=== PATIENT | female | born 1945 ===

== ENCOUNTER 2016-10-03 07:10 | Day surgery (SDC) | payer MEDICARE ==
[2016-10-03] MEDS ORDERED: Lactated Ringer's 500 ML IV ONE (08:05)
[2016-10-03] MEDS ORDERED: Propofol 10 mg/ml Inj (20 ML) ONE ×2 (08:44→09:09)
[2016-10-03 09:44] VITALS: BP 144/65; PULSE 105; RESP 20; TEMP 97.5; O2SAT 100
== END 2016-10-03 09:59 | disposition home or self-care (01) ==
LOC: H.ENDO 07:10
PROVIDERS: ATTEND Internal Medicine Gastroenterology
DX: Z12.11 Encounter for screening for malignant neoplasm of colon (principal); K64.8 Other hemorrhoids; E03.9 Hypothyroidism, unspecified; J45.909 Unspecified asthma, uncomplicated; E11.9 Type 2 diabetes mellitus without complications; M19.90 Unspecified osteoarthritis, unspecified site
CPT/HCPCS: 45378; 88305; 88313; J2001; J2704; J7120

== ENCOUNTER 2017-07-01 08:46 | Inpatient (IN) | payer MEDICARE ==
[2017-07-01 08:54] VITALS: BMI 26.9
--- NOTE | 2017-07-01 10:36 | ED PDOC ---
HPI: General Adult Time Seen by Provider: 07/01/17 09:44 Chief Complaint (Nursing): Flu-like Symptoms Chief Complaint (Provider): "im short of breath" History Per: Patient History/Exam Limitations: no limitations Onset/Duration Of Symptoms: Days Have you had recent travel within the past 21 days to any of the following countries: [place], [place], [place] or [place]?: No Current Symptoms Are (Timing): Still Present Severity: Mild Pain Scale Rating Of: 4 Additional Complaint(s): 72 y/o female, with PMHx of RA, NIDDM2, and mild intermittent asthma presents complaining of approx 5-6 days of chills, congestion, cough, myalgias, chest pain, and SOB. Pt reports she lives in a senior home and much of the population residing within the complex has been getting upper respiratory infections. She reports she has chills and intermittent nasal congestion, mildy productive cough with greyish phlegm, sharp chest pain midsternally which comes and goes with the cough, SOB causing her to use her inhaler more often than usual ( approx 2-3 times per day), loss of appetite, and muscle aches. Tolerating PO fluid intake w/o difficulty. She has not been vaccinated for the flu this year as she states she has an allergy preventing her to get it. Denies fever/chills, headaches, changes in vision, hemoptysis, weight loss, palpitations, N/V/D/C, urinary symptoms, numbness/tingling. PMD: [facility] Past Medical History Vital Signs: Last Vital Signs Temp 97.9 F 07/01/17 08:54 Pulse 89 07/01/17 08:54 Resp 20 07/01/17 08:54 BP 144/74 07/01/17 08:54 Pulse Ox 95 07/01/17 10:54 - Medical History PMH: Arthritis, Asthma, Diabetes (Type II), Hypothyroidism - Surgical History Surgical History: Cholecystectomy, - Family History Family History: States: Unknown Family Hx - Allergies Allergies/Adverse Reactions: Allergies Allergy/AdvReac Type Severity Reaction Status Date / Time No Known Allergies Allergy Verified 10/03/16 08:07 Review of Systems ROS Statement: Except As Marked, All Systems Reviewed And Found Negative Physical Exam - Reviewed Nursing Documentation Reviewed: Yes Vital Signs Reviewed: Yes - Physical Exam Appears: Positive for: Non-toxic, No Acute Distress Head Exam: Positive for: ATRAUMATIC Skin: Positive for: Warm, Dry Eye Exam: Positive for: Normal appearance, EOMI, PERRL. Negative for: Conjunctival injection ENT: Positive for: Normal ENT Inspection. Negative for: Sinus Pain/Drainage, Nasal Congestion, Pharyngeal Erythema, Tonsillar Exudate, Tonsillar Swelling Neck: Positive for: Painless ROM, Supple Cardiovascular/Chest: Positive for: Regular Rate, Rhythm. Negative for: JVD, Murmur, Bradycardia, Tachycardia Respiratory: Positive for: Decreased Breath Sounds (bibasilar ), Rhonchi (left sided rhonci ), Wheezing (expiratory wheezing throughout both lung alexander ). Negative for: Accessory Muscle Use, Crackles, Rales, Respiratory Distress, Plerual Rub Pulses-Radial (L): 2+ Pulses-Radial (R): 2+ Gastrointestinal/Abdominal: Positive for: Normal Exam, Soft. Negative for: Tenderness Back: Negative for: L CVA Tenderness, R CVA Tenderness Lymphatic: Negative for: Adenopathy Neurologic/Psych: Positive for: Alert, rhit II-XII, Oriented - Laboratory Results Result Diagrams: 07/01/17 11:08 07/01/17 11:52 - ECG O2 Sat by Pulse Oximetry: 95 - Progress ED Course And Treament: likley asthma exacerbation 2/2 to URI/flu rapid flu cbc cmp troponin coags CXR EKG Duo-nebs x3, Q20 minutes apart Solu-medrol 125mg Chest CTA re-evaluated, stable, pt reports mild improvement in SOB, denies CP but still feels weak. As per CT findings, discussed with inpatient team, pt to be admitted for further evaluation. Disposition - Clinical Impression Clinical Impression: Influenza-like symptoms, Abnormal chest CT - Patient ED Disposition Is Patient to be Admitted: Yes - Disposition Disposition Time: 14:56 Condition: STABLE Forms: H[employer]Me (Faroese) - Pt Status Changed To: Hospital Disposition Of: Inpatient - Admit Certification Admit to Inpatient:: After my assessment, the patient will require hospitalization for at least two midnights. This is because of the severity of symptoms shown, intensity of services needed, and/or the medical risk in this patient being treated as an outpatient.
[2017-07-01] MEDS ORDERED: methylPREDNISolone 125 MG in Sodium Chloride 0.9% 50 ML IVPB ONE (10:42)
[2017-07-01] MEDS ORDERED: Albuterol-Ipratrop 3 mg / 0.5 (3 ml) UD INH STA (10:42)
[2017-07-01] MEDS ORDERED: Albuterol-Ipratrop 3 mg / 0.5 (3 ml) UD INH ONE ×2 (11:05→11:25)
--- NOTE | 2017-07-01 11:05 | RAD ---
PROCEDURE: CHEST RADIOGRAPH, 1 VIEW HISTORY: Cough COMPARISON: 05/06/2015. FINDINGS: LUNGS: There is low lung volume on the right with shift of trachea and mediastinal diffuse opacification of the right hemithorax. The left lung is well inflated and clear. PLEURA: No pneumothorax or pleural fluid seen. CARDIOVASCULAR: Normal. OSSEOUS STRUCTURES: No significant abnormalities. VISUALIZED UPPER ABDOMEN: Normal. OTHER FINDINGS: None. IMPRESSION: Diffuse opacification of the right hemithorax with shift of trachea and mediastinal which could represent right lung collapse and superimposed infection cannot be excluded. Follow-up is advised.
[2017-07-01] MEDS ORDERED: Albuterol-Ipratrop 3 mg / 0.5 (3 ml) UD ONE (11:20)
[2017-07-01 11:21] LABS: BASO # 0.1 K/uL (0.0-0.2); BASO % 0.8 % (0.0-2.0); EOS # 0.4 K/uL (0.0-0.7); EOS % 4.4 % (0.0-4.0); HEMOGLOBIN 11.5 g/dL (12.0-16.0); LYMPH # 1.3 K/uL (1.0-4.3); LYMPH % 14.3 % (20.0-40.0); MEAN CELL VOLUME 86.2 fl (81.0-99.0); MEAN CORPUSCULAR HEMOGLOBIN 28.5 pg (27.0-31.0); MEAN CORPUSCULAR HGB CONC 33.1 g/dL (33.0-37.0); MEAN PLATELET VOLUME 8.1 fl (7.2-11.7); MONO # 1.6 K/uL (0.0-0.8); MONO % 17.8 % (0.0-10.0); NEUT # 5.7 K/uL (1.8-7.0); NEUT % 62.7 % (50.0-75.0); NRBC % 0.1 % (0.0-0.0); RBC 4.03 Mil/uL (3.80-5.20); RED CELL DISTRIBUTION WIDTH 14.7 % (11.5-14.5)
[2017-07-01 11:36] LABS: INR 1.2 (0.9-1.2); PARTIAL THROMBOPLASTIN TIME 31.9 Seconds (25.6-37.1); PROTHROMBIN TIME 12.9 Seconds (9.8-13.1)
[2017-07-01] MEDS ORDERED: Iodixanol 320 MG/ML 100 ML BOTTLE IV ONE (13:09)
[2017-07-01] MEDS ORDERED: Sodium Chloride 0.9% 50 ML IV ONE (13:09)
[2017-07-01 13:22] LABS: ALBUMIN 4.1 g/dL (3.5-5.0); ALT/SGPT 35 U/L (9-52); AST/SGOT 37 U/L (14-36); BLOOD UREA NITROGEN 13 mg/dl (7-17); CALCIUM 9.8 mg/dL (8.4-10.2); GFR AFRICAN-AMERICAN > 60; GFR NON-AFRICAN AMERICAN > 60
[2017-07-01 13:34] LABS: B-TYPE NATRIURETIC PEPTIDE 139 pg/ml (0-900)
--- NOTE | 2017-07-01 14:14 | CT ---
PROCEDURE: CT Chest with contrast (Pulmonary Angiogram) HISTORY: Chest pain, evaluate for pulmonary embolism COMPARISON: Plain radiographs performed the same day. CT chest from 10/01/2013 TECHNIQUE: Axial computed tomography images were obtained of the chest in the pulmonary arterial phase of enhancement. Coronal and sagittal reformatted images were created and reviewed. Intravenous contrast dose: 99 cc Visipaque 320 Radiation dose: Total exam DLP = 421.23 mGy-cm. This CT exam was performed using one or more of the following dose reduction techniques: Automated exposure control, adjustment of the mA and/or kV according to patient size, and/or use of iterative reconstruction technique. FINDINGS: PULMONARY ARTERIES: There are no filling defects in the pulmonary arteries to suggest acute pulmonary embolism. AORTA: No thoracic aortic aneurysm. LUNGS: Again seen is chronic collapse of the right upper and middle lobes with cystic bronchiectasis, volume loss and shift of trachea and mediastinal to the right. There is hyperinflation of the right lower lobe. The left lung is clear without consolidation or mass. There are stable noncalcified granulomas in the left lower lobe, the largest measures 5 mm. PLEURAL SPACES: No pleural effusions or pneumothorax. HEART: The heart is normal in size. No pericardial effusion. LYMPH NODES: No pathologic lymphadenopathy. BONES, CHEST WALL: Within normal limits for the patient's age. No fracture or destructive lesion OTHER FINDINGS: Both adrenal glands are normal. There are stable calcifications in the right hepatic lobe and capsular calcification in this plane. IMPRESSION: 1. No CTA evidence for acute pulmonary embolism. 2. Chronic complete collapse of the right upper lobe with cystic bronchiectasis and fibrotic changes with resultant shift of trachea and mediastinum to the right. No acute pulmonary disease. 3. Stable noncalcified granulomas in the left lower lobe, the largest measures 5 mm.
[2017-07-01] MEDS ORDERED: Albuterol-Ipratrop 3 mg / 0.5 (3 ml) UD INH SCH (14:30)
--- NOTE | 2017-07-01 16:54 | CP.PCM.HP ---
History of Present Illness - History of Present Illness History of Present Illness: 72 y/o F with a PMHx of Hypothyroidism, RA, asthma and DM2 presented to ER c/o chills, nasal congestion, productive cough with dark sputum, diffuse joint pain , chest pain and SOB for 6 days. Pt lives at [facility], reports ill contacts with neighbors who have URI. Pt has been using her Albuterol inhaler more than twice a day for the last few days. - Also, pt reports c/o weakness that began 1 year ago, has been progressively aggravating and most severe since 1 month ago. According to pt, she has noticed increased lost of appetite and minimal weight loss since a few months ago. Pt also reports episodes of chest pain that is described as sharp, sub-sternal, non -radiating, last for a few seconds, associated with profuse sweating and resolves spontaneously. Pt states sweating has also been present since 1 year ago but has become daily, even during night. -Pt reports for the last month, she has been using Albuterol 1x a week and 1 night per week. Pt was diagnosed with RA aprozimately 9 months ago, on MTX for 6 months and has alleviated her joint pain. Pt see her oral and maxillofacial surgery regularly and reports her RA is cotrolled with her current meds. -Pt also endorses having TB when she was 9.5 years old, was hospitalized at [facility] in [place] for 1.5 years taking ~6 different medications a day. Last time she saw her special programs director was 1 year ago who recommended breathing exercises. PMD: [facility] [employer] [facility] Consultant: Dr Mac. Boarder Steam: Dr Tao. PMHx: RA, Asthma, DM2 and hypothyroidism. Hx of active TB infection. Meds: Albuterol, MTX, Sulindac, Levothyroxine 125mcg, Folica acid, Glimepiride PSHx: Cholecystectomy. FHx: mother had a hysterectomy due to unspecified cancer, mother and father had DM2 and due to heart failure. SHx: Never smoked, no alcohol, no rec drugs. ER course: -CBC, CMP, coagulation profile, were ordered. Unremarkable results. -troponin x1-negative. -Influenza negative. -EKG was abnormal, final report pending. -CXR shoed diffuse opacification of R hemithorax with shift of trachea and mediastinum. See full report. -Chest Angio CT showed no PE evidence, chronic compete collapse of RUL with cystic bronchiectasis and fibrotic changes with resultant shift of trachea and mediastinum to the right. Stable noncalcified granuloma in the LLL, the largest measures 5 mm. -DuoNeb x3, Methylprednisolone and Levofloxacin administered. Present on Admission - Present on Admission Any Indicators Present on Admission: No Review of Systems - Constitutional Constitutional: Chills, Excessive Sweating, Fatigue, Lethargy. absent: Fever, Frequent Falls - EENT Eyes: absent: Blurred Vision, Change in Vision, Photophobia Ears: absent: Ear Pain, Tinnitus Nose/Mouth/Throat: Nasal Congestion - Cardiovascular Cardiovascular: Chest Pain, Dyspnea. absent: Dyspnea on Exertion, Lightheadedness - Respiratory Respiratory: Cough, Dyspnea. absent: Hemoptysis - Gastrointestinal Gastrointestinal: absent: Abdominal Pain, Change in Bowel Habits, Change in Stool Character - Musculoskeletal Musculoskeletal: Arthralgias Past Patient History - Past Medical History & Family History Past Medical History?: Yes - Past Social History Smoking Status: Never Smoked - PULMONARY Hx Asthma: Yes - ENDOCRINE/METABOLIC Hx Hypothyroidism: Yes - MUSCULOSKELETAL/RHEUMATOLOGICAL Hx Arthritis: Yes - PSYCHIATRIC Hx Substance Use: No - SURGICAL HISTORY Hx Cholecystectomy: Yes - ANESTHESIA Hx Anesthesia: Yes Hx Anesthesia Reactions: No Hx Malignant Hyperthermia: No Meds Allergies/Adverse Reactions: Allergies Allergy/AdvReac Type Severity Reaction Status Date / Time No Known Allergies Allergy Verified 10/03/16 08:07 Physical Exam - Constitutional Appears: Well, No Acute Distress - Head Exam Head Exam: ATRAUMATIC, NORMAL INSPECTION - Eye Exam Eye Exam: EOMI, Normal appearance, PERRL - ENT Exam ENT Exam: Mucous Membranes Moist - Neck Exam Neck exam: Positive for: Full Rom. Negative for: Lymphadenopathy, Meningismus - Respiratory Exam Respiratory Exam: Wheezes (Bilaterally on lower lobes), NORMAL BREATHING PATTERN - Cardiovascular Exam Cardiovascular Exam: REGULAR RHYTHM, +S1, +S2 - GI/Abdominal Exam GI & Abdominal Exam: Normal Bowel Sounds, Soft. absent: Tenderness Results - Vital Signs Recent Vital Signs: Last Vital Signs Temp 97.9 F 07/01/17 08:54 Pulse 89 07/01/17 08:54 Resp 20 07/01/17 08:54 BP 144/74 07/01/17 08:54 Pulse Ox 95 07/01/17 14:57 - Labs Result Diagrams: 07/01/17 11:08 07/01/17 11:52 Labs: Laboratory Results - last 24 hr 07/01/17 07/01/17 07/01/17 11:08 11:08 11:08 WBC 9.0 RBC 4.03 Hgb 11.5 L Hct 34.7 MCV 86.2 D MCH 28.5 MCHC 33.1 RDW 14.7 H Plt Count 409 H MPV 8.1 Neut % (Auto) 62.7 Lymph % (Auto) 14.3 L [place] % (Auto) 17.8 H Eos % (Auto) 4.4 H Baso % (Auto) 0.8 Neut # 5.7 Lymph # 1.3 [place] # 1.6 H Eos # 0.4 Baso # 0.1 PT 12.9 INR 1.2 APTT 31.9 Sodium 142 Potassium 4.6 Chloride 105 Carbon Dioxide 27 Anion Gap 15 BUN 13 Creatinine 0.7 Est GFR ( Amer) > 60 Est GFR (Non-Af Amer) > 60 Random Glucose 74 Calcium 9.8 Total Bilirubin 0.6 AST 37 H D ALT 35 Alkaline Phosphatase 159 H D Troponin I < 0.0120 NT-Pro-B Natriuret Pep 139 Total Protein 8.2 Albumin 4.1 Globulin 4.1 H Albumin/Globulin Ratio 1.0 Influenza Typ A,B (EIA) 07/01/17 07/01/17 11:08 11:52 WBC RBC Hgb Hct MCV MCH MCHC RDW Plt Count MPV Neut % (Auto) Lymph % (Auto) [place] % (Auto) Eos % (Auto) Baso % (Auto) Neut # Lymph # [place] # Eos # Baso # PT INR APTT Sodium Cancelled Potassium Cancelled Chloride Cancelled Carbon Dioxide Cancelled Anion Gap Cancelled BUN Cancelled Creatinine Cancelled Est GFR ( Amer) Cancelled Est GFR (Non-Af Amer) Cancelled Random Glucose Cancelled Calcium Cancelled Total Bilirubin Cancelled AST Cancelled ALT Cancelled Alkaline Phosphatase Cancelled Troponin I NT-Pro-B Natriuret Pep Total Protein Cancelled Albumin Cancelled Globulin Cancelled Albumin/Globulin Ratio Cancelled Influenza Typ A,B (EIA) Negative for flu a/b Assessment & Plan - Assessment and Plan (Free Text) Assessment: 72 y/o F with a PMHx of RA, Asthma, hypothyroidism, DM2 and past TB infection was admitted for evaluation of SOB, aggravating weakness and abnormal Chest CT angio. Plan: 1. SOB, flu-like symptoms, Weakness - -Chest Angio CT showed no PE evidence, chronic compete collapse of RUL with cystic bronchiectasis and fibrotic changes with resultant shift of trachea and mediastinum to the right. Stable noncalcified granuloma in the LLL, the largest measures 5 mm. - Suspected CAP, asthma exacerbation, ?TB -reactivation. - C/w Levofloxacin 500mg/100mL daily - Albuterol/Ipratropium 3mL INH RQ4 - EKG to be repeated tomorrow. - CXR. PA and Lat, for tomorrow. - CBC and BMP for tomorrow. - F/U Pro-calcitonin and troponin. 2. Rheumatoid Arthritis - C/w Methotrexate - C/w Sullindac 3. Diabetes Mellitus type II - C/w Glimepiride. - Insulin Protocol - Hypoglycemia Protocol - Consistent carbohydrate diet. 4. Hypothyroidism - C/w Levothyroxine. 5. DVT Prophylaxis. - Lovenox 40mg SC. - Date & Time Date: 07/01/17 Time: 18:00
[2017-07-01] MEDS ORDERED: Dextrose 50% SYRINGE Inj (50 ml) IV PRN (16:56)
[2017-07-01] MEDS ORDERED: Glucagon Recombinant 1 mg Inj IM PRN (16:56)
[2017-07-01] MEDS ORDERED: levoFLOXacin 500 mg in D5W 500 MG/100 ML BAG IVPB ONE (17:21)
[2017-07-01] MEDS: levoFLOXacin 500 mg in D5W 500 MG/100 ML BAG IVPB SCH (17:29)
[2017-07-01] MEDS ORDERED: SULINDAC 200 MG PO PRN (18:02)
[2017-07-01] MEDS: Enoxaparin 40 mg Syringe SC SCH (21:08)
[2017-07-01] MEDS: Insulin Detemir 100 Units/ml Inj SC SCH (21:08)
[2017-07-01] MEDS: Albuterol-Ipratrop 3 mg / 0.5 (3 ml) UD INH SCH (23:09)
[2017-07-02] MEDS: Albuterol-Ipratrop 3 mg / 0.5 (3 ml) UD INH SCH ×7 (04:24→23:55)
[2017-07-02] MEDS: Levothyroxine 125 MCG TAB PO SCH (06:21)
[2017-07-02 06:31] LABS: BASO % 0.4 % (0.0-2.0); EOS % 0.1 % (0.0-4.0); HEMOGLOBIN 11.1 g/dL (12.0-16.0); LYMPH # 0.8 K/uL (1.0-4.3); LYMPH % 6.7 % (20.0-40.0); MEAN CELL VOLUME 86.9 fl (81.0-99.0); MEAN CORPUSCULAR HEMOGLOBIN 27.4 pg (27.0-31.0); MEAN CORPUSCULAR HGB CONC 31.5 g/dL (33.0-37.0); MEAN PLATELET VOLUME 8.2 fl (7.2-11.7); MONO # 1.3 K/uL (0.0-0.8); MONO % 10.4 % (0.0-10.0); NEUT # 10.4 K/uL (1.8-7.0); NEUT % 82.4 % (50.0-75.0); PLATELET COUNT 443 K/uL (130-400); RBC 4.04 Mil/uL (3.80-5.20); RED CELL DISTRIBUTION WIDTH 14.4 % (11.5-14.5); WHITE BLOOD COUNT 12.6 K/uL (4.8-10.8)
[2017-07-02 06:42] LABS: BLOOD UREA NITROGEN 22 mg/dl (7-17); CALCIUM 9.7 mg/dL (8.4-10.2); GFR AFRICAN-AMERICAN > 60; GFR NON-AFRICAN AMERICAN > 60
[2017-07-02] MEDS: Insulin Lispro (humaLOG) 100 Units/ml Inj SC SCH ×3 (08:19→16:30)
[2017-07-02] MEDS: levoFLOXacin 500 mg in D5W 500 MG/100 ML BAG IVPB SCH (08:23)
[2017-07-02] MEDS: GlipiZIDE 2.5 mg SR Tab PO SCH (08:24)
[2017-07-02] MEDS ORDERED: methylPREDNISolone 40 MG in Sodium Chloride 0.9% 50 ML IVPB SCH (10:30)
[2017-07-02 10:55] LABS: LYMPHOCYTE 12 % (20-50); MONOCYTE 9 % (0-10); NEUTROPHIL 79 % (42-75); TOTAL CELLS COUNTED 100
[2017-07-02 10:57] LABS: ANISOCYTOSIS SLIGHT; PLATELET ESTIMATE INCREASED (NORMAL)
[2017-07-02 10:58] LABS: HYPOCHROMIC SLIGHT
[2017-07-02 10:59] LABS: LARGE PLATELETS PRESENT; OVALOCYTES SLIGHT; TOXIC GRANULATION PRESENT
[2017-07-02] MEDS ORDERED: Sodium Chloride 3% for Inhalation 4 ML VIAL.NEB IH PRN (11:00)
[2017-07-02] MEDS: MethylPREDNISolone 40 mg Vial IVP SCH ×2 (12:58→13:46)
--- NOTE | 2017-07-02 12:59 | CP.PCM.PN ---
Subjective - Date & Time of Evaluation Date of Evaluation: 07/02/17 Time of Evaluation: 09:00 - Subjective Subjective: 72 y/o F evaluated and examined by bedside. Pt reports a little improvement of SOB since last night. Pt reports feeling SOB twice overnight and requested Duoneb. Chest pain once last night, lasted less than a minute, weakness still present. Pt afebrile and tolerating PO. Objective - Vital Signs/Intake and Output Vital Signs (last 24 hours): Temp Pulse Resp BP Pulse Ox 98.3 F 63 20 119/78 97 07/02/17 08:16 07/02/17 08:16 07/02/17 08:16 07/02/17 08:16 07/02/17 08:16 - Medications Medications: Current Medications Acetylcysteine (Acetylcysteine 20%) 2 ml INH RBID SILAS Albuterol/Ipratropium (Duoneb 3 Mg/0.5 Mg (3 Ml) Ud) 3 ml INH RQ4 [facility] Last Admin: 07/02/17 11:05 Dose: 3 ml Dextrose (Dextrose 50% Inj) 0 ml IV STAT PRN; Protocol PRN Reason: Hypoglycemia Protocol Dextrose (Glutose 15) 0 gm PO ONCE PRN; Protocol PRN Reason: Hypoglycemia Protocol Enoxaparin Sodium (Lovenox) 40 mg SC HS [facility] PRN Reason: Protocol Last Admin: 07/01/17 21:08 Dose: 40 mg Glipizide (Glucotrol Xl) 2.5 mg PO DAILY [facility] Last Admin: 07/02/17 08:24 Dose: 2.5 mg Glucagon (Glucagen Diagnostic Kit) 0 mg IM STAT PRN; Protocol PRN Reason: Hypoglycemia Protocol Home Med (Sulindac [Sulindac]) 200 mg PO BID PRN PRN Reason: Pain, moderate (4-7) Levofloxacin/Dextrose (Levaquin 500mg) 500 mg in 100 mls @ 100 mls/hr IVPB DAILY [facility] PRN Reason: Protocol Last Admin: 07/02/17 08:23 Dose: 100 mls/hr Insulin Detemir (Levemir) 3 units SC HS [facility] Last Admin: 07/01/17 21:08 Dose: 3 u Insulin Human Lispro (Humalog) 0 units SC ACTID [facility] PRN Reason: Protocol Last Admin: 07/02/17 08:19 Dose: 1 unit Levothyroxine Sodium (Synthroid) 125 mcg PO DAILY@0630 [facility] Last Admin: 07/02/17 06:21 Dose: 125 mcg Methotrexate (Methotrexate) 25 mg PO TU [facility] PRN Reason: Protocol Last Admin: 07/01/17 22:49 Dose: 25 mg Methylprednisolone (Solu-Medrol) 40 mg IVP Q8 [facility] - Labs Labs: 07/02/17 05:45 07/02/17 05:45 PT 12.9 Seconds (9.8-13.1) 07/01/17 11:08 INR 1.2 (0.9-1.2) 07/01/17 11:08 APTT 31.9 Seconds (25.6-37.1) 07/01/17 11:08 - Constitutional Appears: Well, No Acute Distress - Head Exam Head Exam: ATRAUMATIC, NORMAL INSPECTION - Eye Exam Eye Exam: EOMI, Normal appearance - ENT Exam ENT Exam: Mucous Membranes Moist, Normal Exam - Neck Exam Neck Exam: Full ROM - Respiratory Exam Respiratory Exam: Wheezes (mild on bilateral bases, presence of improvement from last night examination. ), NORMAL BREATHING PATTERN - Cardiovascular Exam Cardiovascular Exam: REGULAR RHYTHM, +S1, +S2 - GI/Abdominal Exam GI & Abdominal Exam: Soft, Normal Bowel Sounds. absent: Guarding, Rigid, Tenderness - Extremities Exam Extremities Exam: Full ROM. absent: Calf Tenderness, Joint Swelling - Neurological Exam Neurological Exam: Alert, Awake, Oriented x3 Assessment and Plan - Assessment and Plan (Free Text) Assessment: 72 y/o F with a PMHx of RA, Asthma, hypothyroidism, DM2 and past TB infection was admitted for evaluation and management of acute asthmatic exacerbation. Plan: 1. Asthmatic exacerbation, acute - Chest Angio CT showed no PE evidence, chronic compete collapse of RUL with cystic bronchiectasis and fibrotic changes with resultant shift of trachea and mediastinum to the right. Stable noncalcified granuloma in the LLL, the largest measures 5 mm. - Suspected CAP, asthma exacerbation, ?TB -reactivation. - F/U today's EKG (ordered on 06/30/17) - CXR from today : NO active disease. No significant interval change compared to the prior examination. - Pro-calcitonin 0.50 - low - Troponin < 0.012 - C/w Levofloxacin 500mg/100mL daily - Albuterol/Ipratropium 3mL INH RQ4 - Pulmonology consulted, Dr Mac. - Acetylacysteine 20% INH BID,and Prednisone 40mg PO daily, as per Pulmonology. - F/U Sputum culture by pulmonology. 2. Rheumatoid Arthritis - C/w Methotrexate - C/w Sullindac 3. Diabetes Mellitus type II - C/w Glipizide SR. - Insulin Protocol. - Hypoglycemia Protocol - Consistent carbohydrate diet. 4. Hypothyroidism - C/w Levothyroxine. 5. DVT Prophylaxis. - Lovenox 40mg SC.
--- NOTE | 2017-07-02 13:52 | RAD ---
HISTORY: R/o pneumonia. COMPARISON: July 01, 2017. TECHNIQUE: Chest PA and lateral FINDINGS: LUNGS: Stable fibronodular/granulomatous changes primarily affecting right rama thorax. Hyperinflated left lung, no active disease. PLEURA: No significant pleural effusion identified. No pneumothorax apparent. CARDIOVASCULAR: Normal. OSSEOUS STRUCTURES: No significant abnormalities. VISUALIZED UPPER ABDOMEN: Normal. OTHER FINDINGS: None. IMPRESSION: No active disease. No significant interval change compared to the prior examination(s).
[2017-07-02] MEDS: Acetylcysteine 20% Inhal Soln (4ml) INH SCH (20:11)
--- NOTE | 2017-07-02 20:39 | CON ---
DATE: HISTORY OF PRESENT ILLNESS: Ms. Garcia is a 72-year-old female, who was admitted to the [facility] service and referred for pulmonary consultation because of shortness of breath, exercise intolerance, cough productive of thick tenacious sputum, and difficulty expectorating sputum for the past 5 to 6 days prior to presentation. She denies fever or chills, but indicates that she has been unable to function appropriately since developing what she thought was a cold. She had taken [id number] home remedies and nebulized albuterol medication, but symptoms, however, persisted. 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 FAMILY HISTORY: Noncontributory. SOCIAL HISTORY: She does not drink or smoke, and lives in a senior citizen building. REVIEW OF SYSTEMS: Essentially remarkable for occasional shortness of breath and exercise intolerance. PHYSICAL EXAMINATION: GENERAL: The patient is alert and oriented, appears to be still in mild distress. VITAL SIGNS: Blood pressure 144/74, pulse of 89, respiratory rate of 20. She is afebrile with a temperature of 97.9 degrees Fahrenheit. O2 sat 95% on nasal cannula oxygen. SKIN: Shows fair turgor. HEENT: Pupils equal and reactive to light and accommodation. Mouth shows fair hygiene. NECK: JVP flat. LUNGS: Poor aeration bilaterally with biapical dullness and basal dullness, fair aeration in the mid lung zones. There is also bilateral wheezing and rales. HEART: Regular. ABDOMEN: Soft, nontender. No organomegaly. EXTREMITIES: Show changes of rheumatoid arthritis with ulnar deviation of fingers and swan-neck deformity. No edema or cyanosis. CENTRAL NERVOUS SYSTEM: Exam grossly intact. LABORATORY DATA: WBC 9.0, hemoglobin 11.5, platelet count 409,000. Sodium 141, potassium 4.7, BUN 22, creatinine 0.8, glucose 158, calcium 9.7. ProBNP 139. Troponin less than 0.012. Chest x-ray and CAT scan of the chest, both remarkable for no evidence of pulmonary embolism, chronic complete collapse of right upper lobe with cystic bronchiectasis and fibrotic changes with resultant shift of trachea and mediastinum to the right, no acute pulmonary disease, stable noncalcified granuloma in left lower lobe, the largest measures about 5 mm. These changes are also evident on x-rays done in 2015. 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 PLAN: Aerosolized bronchodilators. Obtain sputum for Gram stain and cultures. Continue oxygen therapy. Add Mucomyst therapy to help expectorate sputum. Continue antibiotic therapy as ordered. We will continue to follow with you. Bradly Mac MD
[2017-07-02] MEDS: Enoxaparin 40 mg Syringe SC SCH (21:55)
[2017-07-02] MEDS: Insulin Detemir 100 Units/ml Inj SC SCH (21:55)
[2017-07-03] MEDS: Albuterol-Ipratrop 3 mg / 0.5 (3 ml) UD INH SCH ×6 (03:59→23:45)
[2017-07-03] MEDS: Levothyroxine 125 MCG TAB PO SCH (06:05)
[2017-07-03 06:56] LABS: HEMOGLOBIN 11.1 g/dL (12.0-16.0); MEAN CELL VOLUME 86.9 fl (81.0-99.0); MEAN CORPUSCULAR HEMOGLOBIN 28.4 pg (27.0-31.0); MEAN CORPUSCULAR HGB CONC 32.7 g/dL (33.0-37.0); RBC 3.92 Mil/uL (3.80-5.20); RED CELL DISTRIBUTION WIDTH 14.8 % (11.5-14.5); WHITE BLOOD COUNT 11.1 K/uL (4.8-10.8)
[2017-07-03 06:59] LABS: BLOOD UREA NITROGEN 21 mg/dl (7-17); CALCIUM 9.8 mg/dL (8.4-10.2); GFR AFRICAN-AMERICAN > 60; GFR NON-AFRICAN AMERICAN > 60
[2017-07-03] MEDS: Acetylcysteine 20% Inhal Soln (4ml) INH SCH ×2 (08:03→20:12)
[2017-07-03] MEDS: Insulin Lispro (humaLOG) 100 Units/ml Inj SC SCH ×3 (08:12→17:27)
[2017-07-03] MEDS: GlipiZIDE 2.5 mg SR Tab PO SCH (09:13)
[2017-07-03] MEDS: levoFLOXacin 500 mg in D5W 500 MG/100 ML BAG IVPB SCH (09:17)
--- NOTE | 2017-07-03 09:28 | CP.PCM.PN ---
Subjective - Date & Time of Evaluation Date of Evaluation: 07/03/17 Time of Evaluation: 09:28 - Subjective Subjective: clinically improved cough/sob less Objective - Vital Signs/Intake and Output Vital Signs (last 24 hours): Temp Pulse Resp BP Pulse Ox 98.2 F 69 18 114/74 98 07/03/17 08:20 07/03/17 08:20 07/03/17 08:20 07/03/17 08:20 07/03/17 08:20 - Medications Medications: Current Medications Acetylcysteine (Acetylcysteine 20%) 2 ml INH RBID ON LICENSE OF [facility] Last Admin: 07/03/17 08:03 Dose: 2 ml Albuterol/Ipratropium (Duoneb 3 Mg/0.5 Mg (3 Ml) Ud) 3 ml INH RQ4 ON LICENSE OF [facility] Last Admin: 07/03/17 08:03 Dose: 3 ml Dextrose (Dextrose 50% Inj) 0 ml IV STAT PRN; Protocol PRN Reason: Hypoglycemia Protocol Dextrose (Glutose 15) 0 gm PO ONCE PRN; Protocol PRN Reason: Hypoglycemia Protocol Enoxaparin Sodium (Lovenox) 40 mg SC HS ON [facility] OF [facility] PRN Reason: Protocol Last Admin: 07/02/17 21:55 Dose: 40 mg Glipizide (Glucotrol Xl) 2.5 mg PO DAILY ON [facility] OF [facility] Last Admin: 07/03/17 09:13 Dose: 2.5 mg Glucagon (Glucagen Diagnostic Kit) 0 mg IM STAT PRN; Protocol PRN Reason: Hypoglycemia Protocol Home Med (Sulindac [Sulindac]) 200 mg PO BID PRN PRN Reason: Pain, moderate (4-7) Levofloxacin/Dextrose (Levaquin 500mg) 500 mg in 100 mls @ 100 mls/hr IVPB DAILY ON LICENSE OF [facility] PRN Reason: Protocol Last Admin: 07/03/17 09:17 Dose: 100 mls/hr Insulin Detemir (Levemir) 3 units SC HS ON LICENSE OF [facility] Last Admin: 07/02/17 21:55 Dose: 3 u Insulin Human Lispro (Humalog) 0 units SC ACTID ON LICENSE OF [facility] PRN Reason: Protocol Last Admin: 07/03/17 08:12 Dose: 1 unit Levothyroxine Sodium (Synthroid) 125 mcg PO DAILY@0630 ON LICENSE OF [facility] Last Admin: 07/03/17 06:05 Dose: 125 mcg Methotrexate (Methotrexate) 25 mg PO TU ON LICENSE OF [facility] PRN Reason: Protocol Last Admin: 07/01/17 22:49 Dose: 25 mg Prednisone (Prednisone Tab) 40 mg PO DAILY ON LICENSE OF [facility] Last Admin: 07/03/17 09:13 Dose: 40 mg - Labs Labs: 07/03/17 05:35 07/03/17 05:35 PT 12.9 Seconds (9.8-13.1) 07/01/17 11:08 INR 1.2 (0.9-1.2) 07/01/17 11:08 APTT 31.9 Seconds (25.6-37.1) 07/01/17 11:08 - Constitutional Appears: No Acute Distress - Head Exam Head Exam: ATRAUMATIC, NORMAL INSPECTION, NORMOCEPHALIC - Eye Exam Eye Exam: EOMI, Normal appearance, PERRL Pupil Exam: NORMAL ACCOMODATION, PERRL - ENT Exam ENT Exam: Mucous Membranes Moist, Normal Exam - Neck Exam Neck Exam: Full ROM, Normal Inspection. absent: Lymphadenopathy - Respiratory Exam Respiratory Exam: Decreased Breath Sounds, Prolonged Expiratory Phase, Wheezes, NORMAL BREATHING PATTERN - Cardiovascular Exam Cardiovascular Exam: REGULAR RHYTHM, +S1, +S2. absent: Murmur - GI/Abdominal Exam GI & Abdominal Exam: Soft, Normal Bowel Sounds. absent: Tenderness - Rectal Exam Rectal Exam: NORMAL INSPECTION - Extremities Exam Extremities Exam: Full ROM, Normal Capillary Refill, Normal Inspection. absent : Joint Swelling, Pedal Edema - Back Exam Back Exam: NORMAL INSPECTION - Neurological Exam Neurological Exam: Alert, Awake, CN II-XII Intact, Normal Gait, Oriented x3 - Psychiatric Exam Psychiatric exam: Normal Affect, Normal Mood - Skin Skin Exam: Dry, Intact, Normal Color, Warm Assessment and Plan - Assessment and Plan (Free Text) Assessment: acute asthma-improved uri-improved chronic fibrocalcific pulmonary dz Plan: ok to d/c today on tapering doses of prednisone x 3 weeks will sign off case and see again at your request
--- NOTE | 2017-07-03 10:02 | CARD ---
APPROVED REPORT EKG Measurement Heart [id number] <Conclusion> Normal sinus rhythm Septal infarct, age undetermined Abnormal ECG
--- NOTE | 2017-07-03 10:39 | CP.PCM.PN ---
Subjective - Date & Time of Evaluation Date of Evaluation: 07/03/17 Time of Evaluation: 07:00 - Subjective Subjective: 72 yo F seen and examined at bedside. Pt reports significant improvement in SOB. She still experiences slight SOB with prolonged walking. Objective - Vital Signs/Intake and Output Vital Signs (last 24 hours): Temp Pulse Resp BP Pulse Ox 98.2 F 69 18 114/74 98 07/03/17 08:20 07/03/17 08:20 07/03/17 08:20 07/03/17 08:20 07/03/17 08:20 - Medications Medications: Current Medications Acetylcysteine (Acetylcysteine 20%) 2 ml INH RBID [facility] Last Admin: 07/03/17 08:03 Dose: 2 ml Albuterol/Ipratropium (Duoneb 3 Mg/0.5 Mg (3 Ml) Ud) 3 ml INH RQ4 [facility] Last Admin: 07/03/17 08:03 Dose: 3 ml Dextrose (Dextrose 50% Inj) 0 ml IV STAT PRN; Protocol PRN Reason: Hypoglycemia Protocol Dextrose (Glutose 15) 0 gm PO ONCE PRN; Protocol PRN Reason: Hypoglycemia Protocol Enoxaparin Sodium (Lovenox) 40 mg SC HS [facility] PRN Reason: Protocol Last Admin: 07/02/17 21:55 Dose: 40 mg Glipizide (Glucotrol Xl) 2.5 mg PO DAILY [facility] Last Admin: 07/03/17 09:13 Dose: 2.5 mg Glucagon (Glucagen Diagnostic Kit) 0 mg IM STAT PRN; Protocol PRN Reason: Hypoglycemia Protocol Home Med (Sulindac [Sulindac]) 200 mg PO BID PRN PRN Reason: Pain, moderate (4-7) Levofloxacin/Dextrose (Levaquin 500mg) 500 mg in 100 mls @ 100 mls/hr IVPB DAILY [facility] PRN Reason: Protocol Last Admin: 07/03/17 09:17 Dose: 100 mls/hr Insulin Detemir (Levemir) 3 units SC HS [facility] Last Admin: 07/02/17 21:55 Dose: 3 u Insulin Human Lispro (Humalog) 0 units SC ACTID [facility] PRN Reason: Protocol Last Admin: 07/03/17 08:12 Dose: 1 unit Levothyroxine Sodium (Synthroid) 125 mcg PO DAILY@0630 [facility] Last Admin: 07/03/17 06:05 Dose: 125 mcg Methotrexate (Methotrexate) 25 mg PO [facility]N Reason: Protocol Last Admin: 07/01/17 22:49 Dose: 25 mg Prednisone (Prednisone Tab) 40 mg PO DAILY [facility] Last Admin: 07/03/17 09:13 Dose: 40 mg - Labs Labs: 07/03/17 05:35 07/03/17 05:35 PT 12.9 Seconds (9.8-13.1) 07/01/17 11:08 INR 1.2 (0.9-1.2) 07/01/17 11:08 APTT 31.9 Seconds (25.6-37.1) 07/01/17 11:08 - Constitutional Appears: Well, Non-toxic, No Acute Distress - Eye Exam Eye Exam: EOMI, Normal appearance - ENT Exam ENT Exam: Mucous Membranes Moist - Neck Exam Neck Exam: Full ROM - Respiratory Exam Respiratory Exam: Clear to Ausculation Bilateral, NORMAL BREATHING PATTERN. absent: Wheezes - Cardiovascular Exam Cardiovascular Exam: REGULAR RHYTHM, +S1, +S2 - GI/Abdominal Exam GI & Abdominal Exam: Soft, Normal Bowel Sounds - Neurological Exam Neurological Exam: Alert, Awake, CN II-XII Intact, Oriented x3 - Psychiatric Exam Psychiatric exam: Normal Affect, Normal Mood Assessment and Plan - Assessment and Plan (Free Text) Plan: 72 y/o F with a PMHx of RA, Asthma, hypothyroidism, DM2 and past TB infection was admitted for evaluation and management of acute asthmatic exacerbation. Plan: 1. Asthmatic exacerbation, acute - Pulmonology: Dr Mac on board: Recommends sputum culture and gram stain; Pt is currently collecting sputum samples; - Peak flow Norm: 250; Today: 230 - Chest Angio CT showed no PE evidence, chronic compete collapse of RUL with cystic bronchiectasis and fibrotic changes with resultant shift of trachea and mediastinum to the right. Stable noncalcified granuloma in the LLL, the largest measures 5 mm. - Suspected CAP, asthma exacerbation, ?TB -reactivation. - CXR from 07/02/17: NO active disease. No significant interval change compared to the prior examination. - Pro-calcitonin 0.50 - low - EKG complete - Troponin < 0.012: neg - d/c Levofloxacin 500mg/100mL daily - Albuterol/Ipratropium 3mL INH RQ4 - Acetylacysteine 20% INH BID - Prednisone 40mg PO daily, as per Pulmonology: Taper over 3 weeks on discharge - F/U Sputum culture - O2 at 2 L NC - Pending walk test 2. Rheumatoid Arthritis - C/w Methotrexate - C/w Sullindac 3. Diabetes Mellitus type II - C/w Glipizide SR - Insulin Protocol - Hypoglycemia Protocol - Consistent carbohydrate diet 4. Hypothyroidism - C/w Levothyroxine 5. Preventative: - Hep C screen 6. DVT Prophylaxis. - Lovenox 40mg SC
[2017-07-03] MEDS: Enoxaparin 40 mg Syringe SC SCH (21:48)
[2017-07-03] MEDS: Insulin Detemir 100 Units/ml Inj SC SCH (21:49)
[2017-07-04] MEDS: Albuterol-Ipratrop 3 mg / 0.5 (3 ml) UD INH SCH ×3 (04:02→11:09)
[2017-07-04] MEDS: Levothyroxine 125 MCG TAB PO SCH (05:55)
[2017-07-04] MEDS: Insulin Lispro (humaLOG) 100 Units/ml Inj SC SCH (06:30)
[2017-07-04] MEDS: Acetylcysteine 20% Inhal Soln (4ml) INH SCH (07:10)
--- NOTE | 2017-07-04 08:28 | CP.PCM.PN ---
Subjective - Date & Time of Evaluation Date of Evaluation: 07/04/17 Time of Evaluation: 08:15 Objective - Vital Signs/Intake and Output Vital Signs (last 24 hours): Temp Pulse Resp BP Pulse Ox 98.1 F 85 18 122/77 95 07/03/17 23:56 07/03/17 23:56 07/03/17 23:56 07/03/17 23:56 07/03/17 23:56 - Medications Medications: Current Medications Acetylcysteine (Acetylcysteine 20%) 2 ml INH RBID [facility] Last Admin: 07/04/17 07:10 Dose: 2 ml Albuterol/Ipratropium (Duoneb 3 Mg/0.5 Mg (3 Ml) Ud) 3 ml INH RQ4 [facility] Last Admin: 07/04/17 07:10 Dose: 3 ml Dextrose (Dextrose 50% Inj) 0 ml IV STAT PRN; Protocol PRN Reason: Hypoglycemia Protocol Dextrose (Glutose 15) 0 gm PO ONCE PRN; Protocol PRN Reason: Hypoglycemia Protocol Enoxaparin Sodium (Lovenox) 40 mg SC HS [facility] PRN Reason: Protocol Last Admin: 07/03/17 21:48 Dose: 40 mg Glipizide (Glucotrol Xl) 2.5 mg PO DAILY [facility] Last Admin: 07/03/17 09:13 Dose: 2.5 mg Glucagon (Glucagen Diagnostic Kit) 0 mg IM STAT PRN; Protocol PRN Reason: Hypoglycemia Protocol Home Med (Sulindac [Sulindac]) 200 mg PO BID PRN PRN Reason: Pain, moderate (4-7) Insulin Detemir (Levemir) 3 units SC HS [facility] Last Admin: 07/03/17 21:49 Dose: 3 u Insulin Human Lispro (Humalog) 0 units SC ACTID [facility] PRN Reason: Protocol Last Admin: 07/04/17 06:30 Dose: Not Given Levothyroxine Sodium (Synthroid) 125 mcg PO DAILY@0630 [facility] Last Admin: 07/04/17 05:55 Dose: 125 mcg Methotrexate (Methotrexate) 25 mg PO TU [facility] PRN Reason: Protocol Last Admin: 07/01/17 22:49 Dose: 25 mg Prednisone (Prednisone Tab) 40 mg PO DAILY [facility] Last Admin: 07/03/17 09:13 Dose: 40 mg - Labs Labs: 07/03/17 05:35 07/03/17 05:35 PT 12.9 Seconds (9.8-13.1) 07/01/17 11:08 INR 1.2 (0.9-1.2) 07/01/17 11:08 APTT 31.9 Seconds (25.6-37.1) 07/01/17 11:08
[2017-07-04 08:33] VITALS: BP 128/79; PULSE 84; RESP 20; TEMP 97.7; O2SAT 97
[2017-07-04] MEDS: GlipiZIDE 2.5 mg SR Tab PO SCH (09:17)
--- NOTE | 2017-07-04 13:59 | CP.PCM.DIS ---
Provider - Provider Date of Admission: 07/02/17 12:47 Attending physician: Keesha Monahan MD Primary care physician: Dr. Aguilar Time Spent in preparation of Discharge (in minutes): 25 Diagnosis - Discharge Diagnosis (1) Asthma Status: Acute Hospital Course - Lab Results Lab Results: Most Recent Lab Values WBC 11.1 K/uL (4.8-10.8) H 07/03/17 05:35 RBC 3.92 Mil/uL (3.80-5.20) 07/03/17 05:35 Hgb 11.1 g/dL (12.0-16.0) L 07/03/17 05:35 Hct 34.1 % (34.0-47.0) 07/03/17 05:35 MCV 86.9 fl (81.0-99.0) 07/03/17 05:35 MCH 28.4 pg (27.0-31.0) 07/03/17 05:35 MCHC 32.7 g/dL (33.0-37.0) L 07/03/17 05:35 RDW 14.8 % (11.5-14.5) H 07/03/17 05:35 Plt Count 499 K/uL (130-400) H 07/03/17 05:35 MPV 8.2 fl (7.2-11.7) 07/02/17 05:45 Neut % (Auto) 82.4 % (50.0-75.0) H 07/02/17 05:45 Lymph % (Auto) 6.7 % (20.0-40.0) L 07/02/17 05:45 [place] % (Auto) 10.4 % (0.0-10.0) H 07/02/17 05:45 Eos % (Auto) 0.1 % (0.0-4.0) 07/02/17 05:45 Baso % (Auto) 0.4 % (0.0-2.0) 07/02/17 05:45 Neut # (Auto) 10.4 K/uL (1.8-7.0) H 07/02/17 05:45 Lymph # (Auto) 0.8 K/uL (1.0-4.3) L 07/02/17 05:45 [place] # (Auto) 1.3 K/uL (0.0-0.8) H 07/02/17 05:45 Eos # (Auto) 0.0 K/uL (0.0-0.7) 07/02/17 05:45 Baso # (Auto) 0.0 K/uL (0.0-0.2) 07/02/17 05:45 Neutrophils % (Manual) 79 % (42-75) H 07/02/17 05:45 Lymphocytes % (Manual) 12 % (20-50) L 07/02/17 05:45 Monocytes % (Manual) 9 % (0-10) 07/02/17 05:45 Toxic Granulation Present 07/02/17 05:45 Platelet Estimate Increased (NORMAL) H 07/02/17 05:45 Large Platelets Present 07/02/17 05:45 Hypochromasia (manual) Slight 07/02/17 05:45 Anisocytosis (manual) Slight 07/02/17 05:45 Ovalocytes Slight 07/02/17 05:45 PT 12.9 Seconds (9.8-13.1) 07/01/17 11:08 INR 1.2 (0.9-1.2) 07/01/17 11:08 APTT 31.9 Seconds (25.6-37.1) 07/01/17 11:08 Sodium 143 mmol/l (132-148) 07/03/17 05:35 Potassium 4.7 MMOL/L (3.6-5.0) 07/03/17 05:35 Chloride 104 mmol/L (98-107) 07/03/17 05:35 Carbon Dioxide 28 mmol/L (22-30) 07/03/17 05:35 Anion Gap 16 (10-20) 07/03/17 05:35 BUN 21 mg/dl (7-17) H 07/03/17 05:35 Creatinine 0.9 mg/dl (0.7-1.2) 07/03/17 05:35 Est GFR ( Amer) > 60 07/03/17 05:35 Est GFR (Non-Af Amer) > 60 07/03/17 05:35 POC Glucose (mg/dL) 166 mg/dL (65-110) H 07/04/17 11:01 Random Glucose 141 mg/dL (65-105) H 07/03/17 05:35 Calcium 9.8 mg/dL (8.4-10.2) 07/03/17 05:35 Total Bilirubin Cancelled 07/01/17 11:52 AST Cancelled 07/01/17 11:52 ALT Cancelled 07/01/17 11:52 Alkaline Phosphatase Cancelled 07/01/17 11:52 NT-Pro-B Natriuret Pep 139 pg/ml (0-900) 07/01/17 11:08 Total Protein Cancelled 07/01/17 11:52 Troponin I < 0.0120 ng/mL (0.00-0.120) 07/01/17 18:00 Albumin Cancelled 07/01/17 11:52 Globulin Cancelled 07/01/17 11:52 Albumin/Globulin Ratio Cancelled 07/01/17 11:52 Procalcitonin < 0.05 NG/ML (0.19-0.49) L 07/01/17 18:00 TSH 3rd Generation 0.50 mIU/ML (0.46-4.68) 07/02/17 06:48 Hepatitis C Antibody Negative (NEGATIVE) 07/04/17 05:40 Influenza Typ A,B (EIA) Negative for flu a/b (NEGATIVE) 07/01/17 11:08 - Hospital Course Hospital Course: 72 y/o F with a PMHx of RA, Asthma, hypothyroidism, DM2 and past TB infection was admitted for evaluation and management of acute asthmatic exacerbation. Respiratory dysfunction resolved. Pt passed walking test. Per Dr. Mac, pulmonology discharge home on tapered prednisone 40 mg over 3 weeks. Peek flow measured at 240; normal 250. Confirmed with pharmacy of Prednisone. Discharge Exam - Head Exam Head Exam: ATRAUMATIC, NORMAL INSPECTION, NORMOCEPHALIC Discharge Plan - Discharge Medications Prescriptions: Levothyroxine [Synthroid] 125 mcg PO DAILY #30 tab Methotrexate 25 mg PO TU #30 tab Prednisone [Deltasone] 10 mg PO DAILY 21 Days tablet Sulindac 200 mg PO BID PRN 30 Days #60 tablet PRN Reason: Pain, Moderate (4-7) - Follow Up Plan Condition: STABLE Disposition: HOME/ ROUTINE Patient education suggested?: Yes Instructions: Asthma (DC), Influenza (DC) Referrals: [facility] [Outside] Bradly Mac MD [Staff Provider] - Kyree Aguilar MD [Family Provider] -
== END 2017-07-04 14:45 | disposition home or self-care (01) | DRG 203 ==
LOC: H.ER 08:46 → H.ERHOLD 14:53 → H.MEDSURG1 18:15 → OBSVTOIN 07-02 12:47
PROVIDERS: ADMIT Family Medicine Geriatric Medicine; ATTEND Family Medicine Geriatric Medicine
DX: J45.21 Mild intermittent asthma with (acute) exacerbation (principal); E11.9 Type 2 diabetes mellitus without complications; M06.9 Rheumatoid arthritis, unspecified; E03.9 Hypothyroidism, unspecified; J06.9 Acute upper respiratory infection, unspecified; B90.9 Sequelae of respiratory and unspecified tuberculosis

== ENCOUNTER 2017-07-22 15:27 | Inpatient (IN) | payer MEDICARE ==
[2017-07-22 15:28] VITALS: BMI 26.9
[2017-07-22] MEDS ORDERED: Albuterol-Ipratrop 3 mg / 0.5 (3 ml) UD INH STA (16:27)
[2017-07-22] MEDS ORDERED: Albuterol-Ipratrop 3 mg / 0.5 (3 ml) UD ONE ×2 (16:35→23:09)
--- NOTE | 2017-07-22 16:59 | ED PDOC ---
HPI: SOB/CHF/COPD Time Seen by Provider: 07/22/17 16:11 Chief Complaint (Nursing): Chest Pain Chief Complaint (Provider): Shortness of breath History Per: Patient History/Exam Limitations: no limitations Onset/Duration Of Symptoms: Days (x3 weeks), Waxing/Waning Current Symptoms Are (Timing): Still Present Quality: Other (heaviness) Exacerbating Factor(s): Other (going outside.) Associated Symptoms: Other (dry cough, generalized weakness). denies: Productive Cough, Ankle/Leg Swelling Recently: Seen In ED Additional Complaint(s): Marielle Garcia is a 72 year old female, with a past medical history of COPD, diabetes, and hypothyroidism, who presents to the emergency department for shortness of breath onset for x3 weeks, waxing and waning. Patient was recently hospitalized on Jul 02 for COPD exacerbation, but reports not feeling better since being home. Patient states her shortness of breath is not exacerbated with exertion but worsens when she goes outside. She reports a cough that was initially productive but has improved and is now a dry cough. Patient was seen by [employer], Dr. Mac, today who advised her to come to the ER for possible hospitalization. Patient is also complaining of diffused generalized weakness, fatigue, chest heaviness and hoarse voice. She denies any fever, chills, leg swelling, rhinorrhea, or sore throat. No further medical complaints. PMD: Clinic. Past Medical History Reviewed: Historical Data, Nursing Documentation, Vital Signs Vital Signs: Last Vital Signs Temp 98 F 07/22/17 23:19 Pulse 82 07/22/17 23:19 Resp 16 07/22/17 23:19 BP 115/76 07/22/17 23:19 Pulse Ox 97 07/22/17 23:19 - Medical History PMH: Arthritis, Asthma, COPD, Diabetes (Type II), Hypothyroidism, Rheumatoid Arthritis Denies: Chronic Kidney Disease - Surgical History Surgical History: Cholecystectomy, - Family History Family History: States: Hypertension - Social History Current smoker - smoking cessation education provided: No - Home Medications Home Medications: Ambulatory Orders Medication Instructions Recorded Cholecalciferol [Vitamin D 1000 IU] 5,000 unit PO SAT 07/01/17 Folic Acid 1 mg PO DAILY 07/01/17 Glimepiride [Amaryl] 1 mg PO DAILY 07/01/17 Levothyroxine [Synthroid] 125 mcg PO DAILY #30 tab 07/04/17 Methotrexate 25 mg PO TU #30 tab 07/04/17 Sulindac 200 mg PO BID PRN 30 Days #60 07/04/17 tablet Albuterol Sulfate [Proair Hfa] 2 puff IH Q4H PRN 07/22/17 Fluticasone/Salmeterol 100/50 1 puff IH Q12 07/22/17 [Advair Diskus 100/50] - Allergies Allergies/Adverse Reactions: Allergies Allergy/AdvReac Type Severity Reaction Status Date / Time Beef Containing Products AdvReac SHORTNESS Verified 07/22/17 16:00 OF BREATH [place] And Derivatives AdvReac SHORTNESS Verified 07/22/17 16:00 OF BREATH diphenhydramine AdvReac REDNESS Verified 07/22/17 17:52 [From Benadryl] methylprednisolone AdvReac VOMITING Verified 07/22/17 17:52 [From Solu-Medrol] PORK AdvReac SHORTNESS Verified 07/22/17 16:00 OF BREATH Review of Systems ROS Statement: Except As Marked, All Systems Reviewed And Found Negative Constitutional: Positive for: Weakness (generalized). Negative for: Fever, Chills ENT: Positive for: Other (hoarse voice). Negative for: Nose Discharge, Throat Pain Respiratory: Positive for: Cough (dry), Shortness of Breath. Negative for: SOB with Exertion Musculoskeletal: Negative for: Leg Pain (or swelling) Physical Exam - Physical Exam Appears: Positive for: Non-toxic, No Acute Distress. Negative for: Well ( Tiring appearance.) Head Exam: Positive for: ATRAUMATIC, NORMOCEPHALIC Skin: Positive for: Warm, Dry Eye Exam: Positive for: EOMI, PERRL ENT: Negative for: Pharyngeal Erythema, Tonsillar Exudate Neck: Positive for: Painless ROM, Supple Cardiovascular/Chest: Positive for: Regular Rate, Rhythm, Chest Non Tender. Negative for: Murmur Respiratory: Positive for: Normal Breath Sounds. Negative for: Wheezing, Respiratory Distress Gastrointestinal/Abdominal: Positive for: Soft. Negative for: Tenderness, Mass , Distended, Guarding Back: Positive for: Normal Inspection. Negative for: Decreased ROM Extremity: Positive for: Normal ROM. Negative for: Deformity Lymphatic: Negative for: Adenopathy Neurologic/Psych: Positive for: Alert. Negative for: Motor/Sensory Deficits - Laboratory Results Result Diagrams: 07/22/17 17:00 07/22/17 17:00 - ECG O2 Sat by Pulse Oximetry: 97 (RA) Pulse Ox Interpretation: Normal Medical Decision Making Medical Decision Making: Initial Impression: Shortness of breath. Differential includes but not limited to COPD exacerbation, anemia, ACS, PE, PNA Initial Plan: --Type and screen --ABG Shock Panel --EKG --B-Type natriuretic peptide --CMP --Magnesium --Phosphorus --TSH --Troponin I --Urine dipstick --CBC w/ differential --D Dimer --PTT --PT --Chest two views (PA/LAT) [RAD] --Duoneb 3 ml INH --SOLU-medrol 125mg IVP --Blood culture --Reevaluation 17:17 CXR IMPRESSION: Right upper lobe volume loss with associated pleural thickening and bronchiectasis. No acute infiltrate. Elevated Ddimer. DW Dr Mac Pulmonology. Agrees with CT angio chest. 20:14 CT angio FINDINGS: Heart, aorta and Pulmonary arteries: Heart size is normal. There is shift of heart and mediastinal structures to the right.There is trace fluid in pericardial recesses.There is no aneurysm or dissection.There are vascular calcifications. Main pulmonary artery is normal in caliber.There are no pulmonary emboli. Lungs and pleural spaces: Trachea and main bronchi are patent. There is chronic right upper and middle lobe volume loss with fibrosis, scarring and bronchiectasis. There are multiple small right upper lobe granulomas. There is dependent atelectasis in the right lower lobe. Right lower lobe is hyperinflated. There is no right effusion. There is scarring at the right base. There are calcified granulomas at the right base. Left lung is hyperinflated. There is dependent atelectasis. There is patchy peripheral airspace disease in the left lower lobe. There is a 5.2 mm left lower lobe pulmonary nodule, unchanged. There is an adjacent 5.3 mm left lower lobe pulmonary nodule, unchanged. There is patchy airspace disease in the left costophrenic angle increased since the prior study. There is no left effusion. Mediastinum: There is shift of heart and mediastinal structures to the right. There are shotty paraaortic nodes. There are calcified paratracheal and right hilar nodes. There is shotty noncalcified left hilar adenopathy. Esophagus is unremarkable. Thyroid: Thyroid is not optimally demonstrated. Bones/joints: There are no acute osseous abnormalities. Soft tissues: unremarkable Upper abdomen: There are no acute abnormalities in the visualized portion of the abdomen.There are capsular calcifications in the spleen. Gallbladder is absent. There are granulomas in the liver. IMPRESSION: Chronic right upper and middle lobe volume loss, fibrosis and bronchiectasis, unchanged; prior granulomatous disease; left lower lobe pulmonary nodules unchanged since prior study; patchy airspace disease at the left base atelectasis and/or infiltrate; no aneurysm, dissection or pulmonary embolus 20:40 --Discussed case with Dr. Tubbs, [facility] resident, for admission. Scribe Attestation: Documented by Keron Stevenson, acting as a scribe for Vicenta Bergeron MD Provider Scribe Attestation: All medical record entries made by the Scribe were at my direction and personally dictated by me. I have reviewed the chart and agree that the record accurately reflects my personal performance of the history, physical exam, medical decision making, and the department course for this patient. I have also personally directed, reviewed, and agree with the discharge instructions and disposition. Disposition - Clinical Impression Clinical Impression: COPD exacerbation, Acute dyspnea Counseled Patient/Family Regarding: Studies Performed, Diagnosis, Need For Followup - Disposition Disposition Time: 20:30 Condition: GUARDED - Pt Status Changed To: Hospital Disposition Of: Observation - POA Present On Arrival: None
[2017-07-22 17:07] LABS: BASO # 0.1 K/uL (0.0-0.2); BASO % 1.1 % (0.0-2.0); EOS # 0.3 K/uL (0.0-0.7); EOS % 4.4 % (0.0-4.0); LYMPH % 14.6 % (20.0-40.0); MEAN CELL VOLUME 87.2 fl (81.0-99.0); MEAN CORPUSCULAR HEMOGLOBIN 28.3 pg (27.0-31.0); MEAN CORPUSCULAR HGB CONC 32.5 g/dL (33.0-37.0); MEAN PLATELET VOLUME 8.4 fl (7.2-11.7); MONO # 1.1 K/uL (0.0-0.8); MONO % 14.9 % (0.0-10.0); NEUT # 4.7 K/uL (1.8-7.0); NRBC % 0.1 % (0.0-0.0); RBC 4.24 Mil/uL (3.80-5.20); RED CELL DISTRIBUTION WIDTH 15.1 % (11.5-14.5); WHITE BLOOD COUNT 7.2 K/uL (4.8-10.8)
--- NOTE | 2017-07-22 17:19 | RAD ---
HISTORY: SOB COMPARISON: 07/02/2017 TECHNIQUE: Chest PA and lateral FINDINGS: LUNGS: Right upper lobe volume loss with pleural thickening and bronchiectasis unchanged in appearance from prior examination. PLEURA: Right apical pleural thickening. No pleural effusion or pneumothorax. CARDIOVASCULAR: Normal heart size. Shift of heart and mediastinum towards the right side. OSSEOUS STRUCTURES: No significant abnormalities. VISUALIZED UPPER ABDOMEN: Normal. OTHER FINDINGS: None. IMPRESSION: Right upper lobe volume loss with associated pleural thickening and bronchiectasis. No acute infiltrate.
[2017-07-22 17:41] LABS: ALB/GLOB RATIO 1.3 (1.0-2.1); ALBUMIN 3.8 g/dL (3.5-5.0); ALT/SGPT 37 U/L (9-52); AST/SGOT 20 U/L (14-36); BLOOD UREA NITROGEN 15 mg/dl (7-17); CALCIUM 9.1 mg/dL (8.4-10.2); GFR AFRICAN-AMERICAN > 60; GFR NON-AFRICAN AMERICAN > 60; MAGNESIUM 1.9 MG/DL (1.6-2.3)
[2017-07-22 17:50] LABS: INR 1.2 (0.9-1.2); PARTIAL THROMBOPLASTIN TIME 30.4 Seconds (25.6-37.1)
[2017-07-22] MEDS ORDERED: Iodixanol 320 MG/ML 100 ML BOTTLE IV ONE (18:24)
[2017-07-22] MEDS ORDERED: Sodium Chloride 0.9% 50 ML IV ONE (18:25)
--- NOTE | 2017-07-22 20:15 | CT ---
EXAM: CT Angiography Chest With Intravenous Contrast EXAM DATE/TIME: 07/22/2017 6:17 PM CLINICAL HISTORY: 72 years old, female; Signs and symptoms; Shortness of breath; Patient HX: Exac copd; Additional info: Worsening SOB and elevated ddimer. Sent phy. Doc. TECHNIQUE: Axial computed tomographic angiography images of the chest with intravenous contrast using pulmonary embolism protocol. All CT scans at this facility use one or more dose reduction techniques, viz.: automated exposure control; ma/kV adjustment per patient size (including targeted exams where dose is matched to indication; i.e. head); or iterative reconstruction technique. MIP reconstructed images were created and reviewed. Coronal and sagittal reformatted images were created and reviewed. CONTRAST: 80 mL of [id number] administered intravenously. COMPARISON: CT - ANGIO CHEST PE PROTOCOL 2017-07-01 12:43 FINDINGS: Heart, aorta and Pulmonary arteries: Heart size is normal. There is shift of heart and mediastinal structures to the right.There is trace fluid in pericardial recesses.There is no aneurysm or dissection.There are vascular calcifications. Main pulmonary artery is normal in caliber.There are no pulmonary emboli. Lungs and pleural spaces: Trachea and main bronchi are patent. There is chronic right upper and middle lobe volume loss with fibrosis, scarring and bronchiectasis. There are multiple small right upper lobe granulomas. There is dependent atelectasis in the right lower lobe. Right lower lobe is hyperinflated. There is no right effusion. There is scarring at the right base. There are calcified granulomas at the right base. Left lung is hyperinflated. There is dependent atelectasis. There is patchy peripheral airspace disease in the left lower lobe. There is a 5.2 mm left lower lobe pulmonary nodule, unchanged. There is an adjacent 5.3 mm left lower lobe pulmonary nodule, unchanged. There is patchy airspace disease in the left costophrenic angle increased since the prior study. There is no left effusion. Mediastinum: There is shift of heart and mediastinal structures to the right. There are shotty para-aortic nodes. There are calcified paratracheal and right hilar nodes. There is shotty noncalcified left hilar adenopathy. Esophagus is unremarkable. Thyroid: Thyroid is not optimally demonstrated. Bones/joints: There are no acute osseous abnormalities. Soft tissues: unremarkable Upper abdomen: There are no acute abnormalities in the visualized portion of the abdomen.There are capsular calcifications in the spleen. Gallbladder is absent. There are granulomas in the liver. IMPRESSION: Chronic right upper and middle lobe volume loss, fibrosis and bronchiectasis, unchanged; prior granulomatous disease; left lower lobe pulmonary nodules unchanged since prior study; patchy airspace disease at the left base atelectasis and/or infiltrate; no aneurysm, dissection or pulmonary embolus Additional nonemergent findings as described above.
[2017-07-22] MEDS ORDERED: Albuterol-Ipratrop 3 mg / 0.5 (3 ml) UD INH PRN (21:12)
[2017-07-22] MEDS ORDERED: Patient's Own Med (Albuterol Sulfate 2 PUFF) IH PRN (21:14)
[2017-07-22] MEDS ORDERED: SULINDAC 200 MG PO PRN (21:20)
[2017-07-22] MEDS ORDERED: Albuterol HFA 90 mcg/actuation (8 g) INH PRN ×2 (21:21→21:30)
--- NOTE | 2017-07-22 21:31 | CP.PCM.HP ---
History of Present Illness - History of Present Illness History of Present Illness: 72 YO F w/ PMH of COPD, DM, Hypothyroidisim was was recenly hospitalized on Jul 02 for a COPD exacerbation states that she has been having worsening of symptoms for the past 3 weeks since her discharge. She has been having SOB and worsening productive cough. Sputum is clear in color no blood noted. She has been compliant with her medication of albuterol and Advair. Patient has been using her ventolin 4 times a day. Does not have any nebulizer at home. Patient states when she tries to go for a walk, she has noticed that she feels very fatigued and her body hurts, which leads to her taking a nap for 3-4 hours , this has happened two times in the past 2 weeks. Denies any palpitation, dizziness, or chest pain with walking. Patient had a 6 min walk test which she passed at [facility] previously. Patient continues to have sharp chest pain at substernal region radiating to back which is always there and has been present for months, was present on the last inpatient visit as well. No aggravating or relieving features. She states she also sweats a lot at night and has noted a itchy sensation on her lower back. Denies any unintentional weight loss, fever, chills, leg swelling. 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 PMD: Kyree Mohan/ Dr. Burgos Whiskey Filterer: Dr Mac. Automatic Equipment Technician: Dr Tao. PMHx: RA, COPD Asthma, DM2 and hypothyroidism. Hx of active TB infection ( When she was 9 years old). Meds: Albuterol, MTX, Sulindac, Levothyroxine 125mcg, Folica acid, Glimepiride PSHx: Cholecystectomy. FHx: mother had a hysterectomy due to unspecified cancer, mother and father had DM2 and due to heart failure. SHx: Never smoked, no alcohol, no rec drugs. Present on Admission - Present on Admission Any Indicators Present on Admission: Yes History of Uncontrolled Diabetes: Yes Past Patient History - Past Medical History & Family History Past Medical History?: Yes - Past Social History Smoking Status: Never Smoked - CARDIAC Hx Cardiac Disorders: No - PULMONARY Hx Asthma: Yes Hx Chronic Obstructive Pulmonary Disease (COPD): Yes - NEUROLOGICAL Hx Neurological Disorder: No - HEENT Hx HEENT Problems: No - RENAL Hx Chronic Kidney Disease: No - ENDOCRINE/METABOLIC Hx Hypothyroidism: Yes - HEMATOLOGICAL/ONCOLOGICAL Hx Blood Disorders: No - INTEGUMENTARY Hx Dermatological Problems: No - MUSCULOSKELETAL/RHEUMATOLOGICAL Hx Arthritis: Yes Hx Rheumatoid Arthritis: Yes - GASTROINTESTINAL Hx Gastrointestinal Disorders: No - GENITOURINARY/GYNECOLOGICAL Hx Genitourinary Disorders: No - PSYCHIATRIC Hx Substance Use: No - SURGICAL HISTORY Hx Cholecystectomy: Yes - ANESTHESIA Hx Anesthesia: Yes Hx Anesthesia Reactions: No Hx Malignant Hyperthermia: No Meds Allergies/Adverse Reactions: Allergies Allergy/AdvReac Type Severity Reaction Status Date / Time Beef Containing Products AdvReac SHORTNESS Verified 07/22/17 16:00 OF BREATH [place] And Derivatives AdvReac SHORTNESS Verified 07/22/17 16:00 OF BREATH diphenhydramine AdvReac REDNESS Verified 07/22/17 17:52 [From Benadryl] methylprednisolone AdvReac VOMITING Verified 07/22/17 17:52 [From Solu-Medrol] PORK AdvReac SHORTNESS Verified 07/22/17 16:00 OF BREATH Physical Exam - Constitutional Appears: No Acute Distress - Head Exam Head Exam: NORMAL INSPECTION - Eye Exam Eye Exam: Normal appearance - ENT Exam ENT Exam: Mucous Membranes Moist - Neck Exam Neck exam: Positive for: Normal Inspection - Respiratory Exam Respiratory Exam: Clear to Auscultation Bilateral. absent: Rales, Rhonchi Additional comments: slight scattered wheeze - Cardiovascular Exam Cardiovascular Exam: REGULAR RHYTHM, +S1, +S2 - GI/Abdominal Exam GI & Abdominal Exam: Normal Bowel Sounds, Soft. absent: Tenderness - Extremities Exam Extremities exam: Positive for: normal inspection. Negative for: calf tenderness - Neurological Exam Neurological exam: Alert, CN II-XII Intact, Oriented x3, Reflexes Normal - Skin Additional comments: Dry scaley patch seen on lower back with excoriation tovar Results - Vital Signs Recent Vital Signs: Last Vital Signs Temp 98.9 F 07/22/17 16:00 Pulse 90 07/22/17 17:50 Resp 18 07/22/17 16:00 BP 138/77 07/22/17 16:00 Pulse Ox 97 07/22/17 20:45 - Labs Result Diagrams: 07/22/17 17:00 02/20/18 17:00 Labs: Laboratory Results - last 24 hr 07/22/17 07/22/17 07/22/17 16:50 16:54 17:00 WBC RBC Hgb Hct MCV MCH MCHC RDW Plt Count MPV Neut % (Auto) Lymph % (Auto) [place] % (Auto) Eos % (Auto) Baso % (Auto) Neut # (Auto) Lymph # (Auto) [place] # (Auto) Eos # (Auto) Baso # (Auto) PT INR APTT D-Dimer, Quantitative Sodium 138 Potassium 3.9 Chloride 100 Carbon Dioxide 26 Anion Gap 16 BUN 15 Creatinine 0.8 Est GFR ( Amer) > 60 Est GFR (Non-Af Amer) > 60 POC Glucose (mg/dL) 182 H Random Glucose 184 H Calcium 9.1 Phosphorus 2.8 Magnesium 1.9 Total Bilirubin 0.4 AST 20 ALT 37 Alkaline Phosphatase 82 Troponin I < 0.0120 NT-Pro-B Natriuret Pep 61.0 Total Protein 6.8 Albumin 3.8 Globulin 3.0 Albumin/Globulin Ratio 1.3 TSH 3rd Generation 1.83 Influenza Typ A,B (EIA) Blood Type O POSITIVE Antibody Screen Negative BBK History Checked No verified bt 07/22/17 07/22/17 07/22/17 17:00 17:00 17:00 WBC 7.2 RBC 4.24 Hgb 12.0 Hct 37.0 MCV 87.2 MCH 28.3 MCHC 32.5 L RDW 15.1 H Plt Count 233 D MPV 8.4 Neut % (Auto) 65.0 Lymph % (Auto) 14.6 L [place] % (Auto) 14.9 H Eos % (Auto) 4.4 H Baso % (Auto) 1.1 Neut # (Auto) 4.7 Lymph # (Auto) 1.0 [place] # (Auto) 1.1 H Eos # (Auto) 0.3 Baso # (Auto) 0.1 PT 13.0 INR 1.2 APTT 30.4 D-Dimer, Quantitative 2556 H Sodium Potassium Chloride Carbon Dioxide Anion Gap BUN Creatinine Est GFR ( Amer) Est GFR (Non-Af Amer) POC Glucose (mg/dL) Random Glucose Calcium Phosphorus Magnesium Total Bilirubin AST ALT Alkaline Phosphatase Troponin I NT-Pro-B Natriuret Pep Total Protein Albumin Globulin Albumin/Globulin Ratio TSH 3rd Generation Influenza Typ A,B (EIA) Negative for flu a/b Blood Type Antibody Screen BBK History Checked Assessment & Plan - Assessment and Plan (Free Text) Assessment: 72 y/o F with a PMHx of RA, Asthma, hypothyroidism, DM2 and past TB infection was admitted with a COPD exacerbation 1. COPD Exacerbation (SOB) - Troponin x 1 negative. EKG consistent with baseline - Elevated D dimer most likely secondary to RA. CT angio did not show any suspicion for PE - Chest X ray: Right upper lobe volume loss with associated pleural thickening and bronchiectasis. No acute infiltrate. - PFT from 07/16/17 was consistent with moderate restrictive ventilatory defect. Was concluded that patient would benefit from bronchodilators therapy. - Albuterol/Ipratropium 3mL INH Q4 - Prednisone 40mg daily - Levofloxacin 750mg IV daily - Pulm consulted: Dr. Mac 2. Rheumatoid Arthritis - C/w Methotrexate - C/w Sullindac 3. Diabetes Mellitus type II - C/w Glimepiride. - Insulin Protocol - Hypoglycemia Protocol - Consistent carbohydrate diet. 4. Hypothyroidism -TSH: 1.83 - C/w Levothyroxine. 5. DVT Prophylaxis. - Lovenox 40mg SC.
[2017-07-22] MEDS ORDERED: Glucagon Recombinant 1 mg Inj IM PRN (21:56)
[2017-07-22] MEDS ORDERED: Dextrose 50% SYRINGE Inj (50 ml) IV PRN (21:56)
[2017-07-22] MEDS ORDERED: Azithromycin 500 MG in Sodium Chloride 0.9% 250 ML IVPB STA (22:37)
[2017-07-22] MEDS: Insulin Regular 100 units/ml SC SCH (22:54)
[2017-07-22] MEDS ORDERED: Insulin Regular 100 units/ml ONE (22:56)
[2017-07-22] MEDS: Albuterol-Ipratrop 3 mg / 0.5 (3 ml) UD INH SCH (23:12)
[2017-07-23] MEDS: Albuterol-Ipratrop 3 mg / 0.5 (3 ml) UD INH SCH ×5 (06:58→20:00)
[2017-07-23] MEDS ORDERED: Insulin Regular 100 units/ml ONE ×3 (08:01→17:13)
[2017-07-23] MEDS: Insulin Regular 100 units/ml SC SCH ×4 (08:04→21:56)
[2017-07-23] MEDS: Enoxaparin 40 mg Syringe SC SCH (08:20)
[2017-07-23] MEDS: Levothyroxine 125 MCG TAB PO SCH (08:21)
[2017-07-23] MEDS: GlipiZIDE 2.5 mg SR Tab PO SCH (08:22)
[2017-07-23] MEDS: Fluticasone-Salmeterol 100-50mcg Diskus IH SCH ×2 (08:30→20:48)
[2017-07-23] MEDS ORDERED: levoFLOXacin 750 mg in D5W 750 MG/150 ML BAG IVPB SCH (09:00)
[2017-07-23] MEDS ORDERED: Sodium Chloride 3% for Inhalation 4 ML VIAL.NEB IH PRN (09:58)
[2017-07-23] MEDS ORDERED: methylPREDNISolone 60 MG in Sodium Chloride 0.9% 50 ML IVPB SCH (10:00)
--- NOTE | 2017-07-23 10:21 | CP.PCM.PN ---
Subjective - Date & Time of Evaluation Date of Evaluation: 07/23/17 Time of Evaluation: 07:45 - Subjective Subjective: Patient seen and examined bedside this morning in ED. Patient awaiting transport to Tele floor. There are no acute events overnight, NAD. The patient reports breathing is improved; however, she states that she has poor appetite and night sweats for about 1 month. Patient reports chronic chest pain and back pain. The patient has no other complaints. Objective - Vital Signs/Intake and Output Vital Signs (last 24 hours): Temp Pulse Resp BP Pulse Ox 98.7 F 80 18 112/65 99 07/23/17 07:33 07/23/17 07:33 07/23/17 07:33 07/23/17 07:33 07/23/17 07:33 - Medications Medications: Current Medications Albuterol (Ventolin Hfa 90 Mcg/Actuation (8 G)) 2 puff INH Q4H PRN PRN Reason: Shortness of Breath Albuterol/Ipratropium (Duoneb 3 Mg/0.5 Mg (3 Ml) Ud) 3 ml INH RQ4 [facility] Last Admin: 07/23/17 08:19 Dose: Not Given Dextrose (Dextrose 50% Inj) 0 ml IV STAT PRN; Protocol PRN Reason: Hypoglycemia Protocol Dextrose (Glutose 15) 0 gm PO ONCE PRN; Protocol PRN Reason: Hypoglycemia Protocol Enoxaparin Sodium (Lovenox) 40 mg SC DAILY [facility] PRN Reason: Protocol Last Admin: 07/23/17 08:20 Dose: 40 mg Folic Acid (Folic Acid) 1 mg PO DAILY [facility] Last Admin: 07/23/17 08:21 Dose: 1 mg Glipizide (Glucotrol Xl) 2.5 mg PO ACB [facility] Last Admin: 07/23/17 08:22 Dose: 2.5 mg Glucagon (Glucagen Diagnostic Kit) 0 mg IM STAT PRN; Protocol PRN Reason: Hypoglycemia Protocol Home Med (Sulindac [Sulindac]) 200 mg PO BID PRN PRN Reason: Pain, moderate (4-7) Levofloxacin/Dextrose (Levaquin 750mg) 750 mg in 150 mls @ 100 mls/hr IVPB DAILY [facility] PRN Reason: Protocol Methylprednisolone 60 mg/ (Sodium Chloride) 50 mls @ 100 mls/hr IVPB Q8 [facility] Insulin Human Regular (Humulin R) 0 units SC ACHS [facility] PRN Reason: Protocol Last Admin: 07/23/17 08:04 Dose: 3 units Levothyroxine Sodium (Synthroid) 125 mcg PO DAILY@0630 [facility] Last Admin: 07/23/17 08:21 Dose: 125 mcg Methotrexate (Methotrexate) 25 mg PO TU [facility] PRN Reason: Protocol Last Admin: 07/22/17 23:12 Dose: 25 mg Fluticasone/Salmeterol (Advair Diskus 100/50) 1 puff IH Q12 [facility] - Labs Labs: 07/22/17 17:00 07/22/17 17:00 PT 13.0 Seconds (9.8-13.1) 07/22/17 17:00 INR 1.2 (0.9-1.2) 07/22/17 17:00 APTT 30.4 Seconds (25.6-37.1) 07/22/17 17:00 - Constitutional Appears: Non-toxic, No Acute Distress - Head Exam Head Exam: ATRAUMATIC, NORMAL INSPECTION, NORMOCEPHALIC - Eye Exam Eye Exam: Normal appearance - ENT Exam ENT Exam: Mucous Membranes Moist - Neck Exam Neck Exam: Full ROM. absent: Tenderness - Respiratory Exam Respiratory Exam: Clear to Ausculation Bilateral, Wheezes. absent: Decreased Breath Sounds, Rales, Rhonchi, Respiratory Distress Additional comments: mild scattered wheeze - Cardiovascular Exam Cardiovascular Exam: REGULAR RHYTHM. absent: Tachycardia - GI/Abdominal Exam GI & Abdominal Exam: Soft, Normal Bowel Sounds. absent: Distended, Tenderness - Extremities Exam Extremities Exam: Normal Inspection. absent: Calf Tenderness, Pedal Edema, Tenderness - Back Exam Back Exam: muscle spasm. absent: paraspinal tenderness, vertebral tenderness - Neurological Exam Neurological Exam: Alert, Awake, Oriented x3 - Skin Skin Exam: Dry Assessment and Plan - Assessment and Plan (Free Text) Assessment: 72 y/o woman w/ pmh of RA, moderate persistent asthma, hypothyroidism, NIDDM2 and past TB infection was admitted for COPD exacerbation Plan: 1. COPD Exacerbation (SOB) - Troponin x 1 negative - EKG consistent with baseline - Elevated D dimer most likely secondary to RA. CT angio did not show any suspicion for PE - Chest X ray: Right upper lobe volume loss with associated pleural thickening and bronchiectasis. No acute infiltrate. - PFT from 07/16/17 was consistent with moderate restrictive ventilatory defect. Was concluded that patient would benefit from bronchodilators therapy. - Advair 1 puff IH Q12h - Albuterol/Ipratropium 3mL INH Q4h [facility] - albuterol 2 puff INH Q4h prn - methylprednisolone 60 mg IV Q8h - Levofloxacin 750mg IV daily day 1 - Pulmonology consulted, Dr. Mac, recommendations appreciated - f/u sputum culture 2. Rheumatoid Arthritis - C/w Methotrexate - C/w Sulindac 3. Non-Insulin Dependent Diabetes Mellitus type II - uncontrolled - C/w Glipizide 2.5 mg PO ACB - HbA1c 11.5% - Correction scale - Hypoglycemia Protocol - Consistent carbohydrate diet. 4. Hypothyroidism - TSH: 1.83 - C/w Levothyroxine 125 mcg daily 5. Prophylactic measures - DVT: Lovenox 40mg SC daily
[2017-07-23] MEDS ORDERED: levoFLOXacin 750 mg in D5W 750 MG/150 ML BAG IVPB ONE (11:07)
--- NOTE | 2017-07-23 12:26 | CON ---
DATE: HISTORY OF PRESENT ILLNESS: Ms. Garcia is a 72-year-old female who was seen in the office and referred to the hospital for evaluation and therapy of acute exacerbation of chronic obstructive pulmonary disease. The patient was recently discharged from [facility] in June and has been sick ever since with worsened shortness of breath and exercise intolerance and cough. She was seen in the office and continued to cough even at rest despite taking all medications at home. She was therefore advised to go to the Emergency Room for workup and therapy because of acute exacerbation of chronic obstructive pulmonary disease. PAST MEDICAL HISTORY: Chronic obstructive pulmonary disease, diabetes mellitus, hypothyroidism, chronic fibrocalcific pulmonary disease, rheumatoid arthritis, diabetes mellitus, and history of old healed pulmonary tuberculosis years ago. FAMILY HISTORY: Noncontributory. SOCIAL HISTORY: She does not smoke or drink. REVIEW OF SYSTEMS: Essentially remarkable for occasional shortness of breath and cough. PHYSICAL EXAMINATION: GENERAL: The patient is alert and oriented, appears to be in moderate distress because of cough and shortness of breath. VITAL SIGNS: Remarkable for blood pressure of 138/77, pulse of 90, respiratory rate of 88. She is febrile. O2 sat 97% on nasal cannula oxygen. SKIN: Shows fair turgor. HEENT: Pupils are equal and reactive to light and accommodation. JVP flat. Mouth shows fair hygiene. LUNGS: Poor aeration bilaterally with audible rales and wheezing and dullness at both bases. HEART: S1 and S2. ABDOMEN: Soft and nontender, no organomegaly. EXTREMITIES: Shows no edema or cyanosis. CENTRAL NERVOUS SYSTEM: Grossly intact. LABORATORY DATA: Remarkable for WBC of 7.2, hemoglobin of 12.0, and platelet count of 233,000. Sodium 138, potassium 3.9, BUN of 15, creatinine 0.8, and serum glucose of 184. CT scan of the chest is remarkable for chronic right upper and middle lobe volume loss, fibrosis and bronchiectasis, compatible with old granulomatous pulmonary disease. There is patchy airspace disease, left base, with atelectasis and/or infiltrate. IMPRESSION AND PLAN: Acute exacerbation of chronic obstructive pulmonary disease. One has to rule out superimposed pneumonia chronic pulmonary changes, one is not able to definitely make a diagnosis of pneumonia. The plan is continue bronchodilators, IV steroids, and IV antibiotics on oxygen. We will continue to follow with you. Sputum will be ordered for cultures. Bradly Mac MD
[2017-07-23] MEDS ORDERED: Albuterol-Ipratrop 3 mg / 0.5 (3 ml) UD ONE ×2 (12:40→17:13)
--- NOTE | 2017-07-23 22:20 | CARD ---
APPROVED REPORT EKG Measurement Heart [id number] <Conclusion> Sinus tachycardia Otherwise normal ECG
[2017-07-24] MEDS: Albuterol-Ipratrop 3 mg / 0.5 (3 ml) UD INH SCH ×4 (00:05→11:51)
[2017-07-24 01:25] VITALS: O2SAT 95
[2017-07-24] MEDS: Levothyroxine 125 MCG TAB PO SCH (06:02)
[2017-07-24] MEDS: Insulin Regular 100 units/ml SC SCH ×2 (07:30→13:01)
[2017-07-24] MEDS: GlipiZIDE 2.5 mg SR Tab PO SCH (08:00)
--- NOTE | 2017-07-24 08:36 | CP.PCM.PN ---
Subjective - Date & Time of Evaluation Date of Evaluation: 07/24/17 Time of Evaluation: 08:36 - Subjective Subjective: SOB RESOLVED MILD BACK PAIN PERSISTS EXERCISE INTOLERANCE IMPROVED Objective - Vital Signs/Intake and Output Vital Signs (last 24 hours): Temp Pulse Resp BP Pulse Ox 97.9 F 91 H 18 130/78 95 07/24/17 00:23 07/24/17 00:23 07/24/17 00:23 07/24/17 00:23 07/24/17 00:23 - Medications Medications: Current Medications Albuterol (Ventolin Hfa 90 Mcg/Actuation (8 G)) 2 puff INH Q4H PRN PRN Reason: Shortness of Breath Albuterol/Ipratropium (Duoneb 3 Mg/0.5 Mg (3 Ml) Ud) 3 ml INH RQ4 [facility] Last Admin: 07/24/17 04:18 Dose: 3 ml Dextrose (Dextrose 50% Inj) 0 ml IV STAT PRN; Protocol PRN Reason: Hypoglycemia Protocol Dextrose (Glutose 15) 0 gm PO ONCE PRN; Protocol PRN Reason: Hypoglycemia Protocol Enoxaparin Sodium (Lovenox) 40 mg SC DAILY [facility] PRN Reason: Protocol Last Admin: 07/23/17 08:20 Dose: 40 mg Folic Acid (Folic Acid) 1 mg PO DAILY [facility] Last Admin: 07/23/17 08:21 Dose: 1 mg Glipizide (Glucotrol Xl) 2.5 mg PO ACB [facility] Last Admin: 07/23/17 08:22 Dose: 2.5 mg Glucagon (Glucagen Diagnostic Kit) 0 mg IM STAT PRN; Protocol PRN Reason: Hypoglycemia Protocol Home Med (Sulindac [Sulindac]) 200 mg PO BID PRN PRN Reason: Pain, moderate (4-7) Levofloxacin/Dextrose (Levaquin 750mg) 750 mg in 150 mls @ 100 mls/hr IVPB DAILY [facility] PRN Reason: Protocol Last Admin: 07/23/17 11:09 Dose: 100 mls/hr Insulin Human Regular (Humulin R) 0 units SC ACHS [facility] PRN Reason: Protocol Last Admin: 07/23/17 21:56 Dose: Not Given Levothyroxine Sodium (Synthroid) 125 mcg PO DAILY@0630 [facility] Last Admin: 07/24/17 06:02 Dose: 125 mcg Methotrexate (Methotrexate) 25 mg PO TU [facility] PRN Reason: Protocol Last Admin: 07/22/17 23:12 Dose: 25 mg Prednisone (Prednisone Tab) 40 mg PO DAILY [facility] Fluticasone/Salmeterol (Advair Diskus 100/50) 1 puff IH Q12 [facility] Last Admin: 07/23/17 20:48 Dose: 1 puff - Labs Labs: 07/22/17 17:00 07/22/17 17:00 PT 13.0 Seconds (9.8-13.1) 07/22/17 17:00 INR 1.2 (0.9-1.2) 07/22/17 17:00 APTT 30.4 Seconds (25.6-37.1) 07/22/17 17:00 - Constitutional Appears: Well - Head Exam Head Exam: ATRAUMATIC, NORMAL INSPECTION, NORMOCEPHALIC - Eye Exam Eye Exam: EOMI, Normal appearance, PERRL Pupil Exam: NORMAL ACCOMODATION, PERRL - ENT Exam ENT Exam: Mucous Membranes Moist, Normal Exam - Neck Exam Neck Exam: Full ROM, Normal Inspection. absent: Lymphadenopathy - Respiratory Exam Respiratory Exam: Clear to Ausculation Bilateral, NORMAL BREATHING PATTERN - Cardiovascular Exam Cardiovascular Exam: REGULAR RHYTHM, +S1, +S2. absent: Murmur - GI/Abdominal Exam GI & Abdominal Exam: Soft, Normal Bowel Sounds. absent: Tenderness - Rectal Exam Rectal Exam: NORMAL INSPECTION - Extremities Exam Extremities Exam: Full ROM, Normal Capillary Refill, Normal Inspection. absent : Joint Swelling, Pedal Edema - Back Exam Back Exam: NORMAL INSPECTION - Neurological Exam Neurological Exam: Alert, Awake, CN II-XII Intact, Normal Gait, Oriented x3 - Psychiatric Exam Psychiatric exam: Normal Affect, Normal Mood - Skin Skin Exam: Dry, Intact, Normal Color, Warm Assessment and Plan - Assessment and Plan (Free Text) Assessment: COPD-IMPROVED URI-IMPROVED Plan: OK TO D/C HOME ON LEVAQUIN/PHENERGAN AND PREDNISONE WILL SIGN OFF CASE AND SEE AGAIN AT YOUR REQUEST
[2017-07-24 08:41] VITALS: BP 154/87; PULSE 84; RESP 20; TEMP 97.4
[2017-07-24] MEDS: Fluticasone-Salmeterol 100-50mcg Diskus IH SCH (09:21)
[2017-07-24] MEDS: Enoxaparin 40 mg Syringe SC SCH (09:23)
--- NOTE | 2017-07-24 09:52 | CP.PCM.PN ---
Subjective - Date & Time of Evaluation Date of Evaluation: 07/24/17 Time of Evaluation: 07:15 Objective - Vital Signs/Intake and Output Vital Signs (last 24 hours): Temp Pulse Resp BP Pulse Ox 97.4 F L 84 20 154/87 H 95 07/24/17 08:40 07/24/17 08:40 07/24/17 08:40 07/24/17 08:40 07/24/17 08:40 - Medications Medications: Current Medications Albuterol (Ventolin Hfa 90 Mcg/Actuation (8 G)) 2 puff INH Q4H PRN PRN Reason: Shortness of Breath Albuterol/Ipratropium (Duoneb 3 Mg/0.5 Mg (3 Ml) Ud) 3 ml INH RQ4 [facility] Last Admin: 07/24/17 08:39 Dose: 3 ml Dextrose (Dextrose 50% Inj) 0 ml IV STAT PRN; Protocol PRN Reason: Hypoglycemia Protocol Dextrose (Glutose 15) 0 gm PO ONCE PRN; Protocol PRN Reason: Hypoglycemia Protocol Enoxaparin Sodium (Lovenox) 40 mg SC DAILY [facility] PRN Reason: Protocol Last Admin: 07/24/17 09:23 Dose: Not Given Folic Acid (Folic Acid) 1 mg PO DAILY [facility] Last Admin: 07/24/17 09:24 Dose: 1 mg Glipizide (Glucotrol Xl) 2.5 mg PO ACB [facility] Last Admin: 07/24/17 08:00 Dose: 2.5 mg Glucagon (Glucagen Diagnostic Kit) 0 mg IM STAT PRN; Protocol PRN Reason: Hypoglycemia Protocol Home Med (Sulindac [Sulindac]) 200 mg PO BID PRN PRN Reason: Pain, moderate (4-7) Levofloxacin/Dextrose (Levaquin 750mg) 750 mg in 150 mls @ 100 mls/hr IVPB DAILY [facility] PRN Reason: Protocol Last Admin: 07/23/17 11:09 Dose: 100 mls/hr Insulin Human Regular (Humulin R) 0 units SC ACHS [facility] PRN Reason: Protocol Last Admin: 07/24/17 07:30 Dose: Not Given Levothyroxine Sodium (Synthroid) 125 mcg PO DAILY@0630 [facility] Last Admin: 07/24/17 06:02 Dose: 125 mcg Methotrexate (Methotrexate) 25 mg PO TU [facility] PRN Reason: Protocol Last Admin: 07/22/17 23:12 Dose: 25 mg Prednisone (Prednisone Tab) 40 mg PO DAILY [facility] Last Admin: 07/24/17 09:22 Dose: 40 mg Fluticasone/Salmeterol (Advair Diskus 100/50) 1 puff IH Q12 [facility] Last Admin: 07/24/17 09:21 Dose: 1 puff - Labs Labs: 07/22/17 17:00 07/22/17 17:00 PT 13.0 Seconds (9.8-13.1) 07/22/17 17:00 INR 1.2 (0.9-1.2) 07/22/17 17:00 APTT 30.4 Seconds (25.6-37.1) 07/22/17 17:00
--- NOTE | 2017-07-24 11:59 | CP.PCM.DIS ---
Provider - Provider Date of Admission: 07/23/17 20:37 Attending physician: Keesha Monahan MD Time Spent in preparation of Discharge (in minutes): 15 Diagnosis - Discharge Diagnosis (1) COPD exacerbation Status: Acute Hospital Course - Lab Results Lab Results: Micro Results 07/23/17 14:00 Sputum Gram Stain - Final 07/23/17 14:00 Sputum Sputum Culture - Preliminary NORMAL ORAL CIELO 07/22/17 16:50 Blood Blood Culture - Preliminary NO GROWTH AFTER 24 HOURS 07/22/17 17:13 Blood Blood Culture - Preliminary NO GROWTH AFTER 24 HOURS Most Recent Lab Values WBC 7.2 K/uL (4.8-10.8) 07/22/17 17:00 RBC 4.24 Mil/uL (3.80-5.20) 07/22/17 17:00 Hgb 12.0 g/dL (12.0-16.0) 07/22/17 17:00 Hct 37.0 % (34.0-47.0) 07/22/17 17:00 MCV 87.2 fl (81.0-99.0) 07/22/17 17:00 MCH 28.3 pg (27.0-31.0) 07/22/17 17:00 MCHC 32.5 g/dL (33.0-37.0) L 07/22/17 17:00 RDW 15.1 % (11.5-14.5) H 07/22/17 17:00 Plt Count 233 K/uL (130-400) D 07/22/17 17:00 MPV 8.4 fl (7.2-11.7) 07/22/17 17:00 Neut % (Auto) 65.0 % (50.0-75.0) 07/22/17 17:00 Lymph % (Auto) 14.6 % (20.0-40.0) L 07/22/17 17:00 Cris[place] % (Auto) 14.9 % (0.0-10.0) H 07/22/17 17:00 Eos % (Auto) 4.4 % (0.0-4.0) H 07/22/17 17:00 Baso % (Auto) 1.1 % (0.0-2.0) 07/22/17 17:00 Neut # (Auto) 4.7 K/uL (1.8-7.0) 07/22/17 17:00 Lymph # (Auto) 1.0 K/uL (1.0-4.3) 07/22/17 17:00 [place] # (Auto) 1.1 K/uL (0.0-0.8) H 07/22/17 17:00 Eos # (Auto) 0.3 K/uL (0.0-0.7) 07/22/17 17:00 Baso # (Auto) 0.1 K/uL (0.0-0.2) 07/22/17 17:00 PT 13.0 Seconds (9.8-13.1) 07/22/17 17:00 INR 1.2 (0.9-1.2) 07/22/17 17:00 APTT 30.4 Seconds (25.6-37.1) 07/22/17 17:00 D-Dimer, Quantitative 2556 ng/mlDDU (0-230) H 07/22/17 17:00 Sodium 138 mmol/l (132-148) 07/22/17 17:00 Potassium 3.9 MMOL/L (3.6-5.0) 07/22/17 17:00 Chloride 100 mmol/L (98-107) 07/22/17 17:00 Carbon Dioxide 26 mmol/L (22-30) 07/22/17 17:00 Anion Gap 16 (10-20) 07/22/17 17:00 BUN 15 mg/dl (7-17) 07/22/17 17:00 Creatinine 0.8 mg/dl (0.7-1.2) 07/22/17 17:00 Est GFR ( Amer) > 60 07/22/17 17:00 Est GFR (Non-Af Amer) > 60 07/22/17 17:00 POC Glucose (mg/dL) 220 mg/dL (65-110) H 07/24/17 11:15 Random Glucose 184 mg/dL (65-105) H 07/22/17 17:00 Hemoglobin A1c 11.5 % (4.2-6.5) H D 07/23/17 05:30 Calcium 9.1 mg/dL (8.4-10.2) 07/22/17 17:00 Phosphorus 2.8 mg/dl (2.5-4.5) 07/22/17 17:00 Magnesium 1.9 MG/DL (1.6-2.3) 07/22/17 17:00 Total Bilirubin 0.4 mg/dl (0.2-1.3) 07/22/17 17:00 AST 20 U/L (14-36) 07/22/17 17:00 ALT 37 U/L (9-52) 07/22/17 17:00 Alkaline Phosphatase 82 U/L (38-126) 07/22/17 17:00 Troponin I < 0.0120 ng/mL (0.00-0.120) 07/22/17 17:00 NT-Pro-B Natriuret Pep 61.0 pg/ml (0-900) 07/22/17 17:00 Total Protein 6.8 G/DL (6.3-8.2) 07/22/17 17:00 Albumin 3.8 g/dL (3.5-5.0) 07/22/17 17:00 Globulin 3.0 gm/dL (2.2-3.9) 07/22/17 17:00 Albumin/Globulin Ratio 1.3 (1.0-2.1) 07/22/17 17:00 TSH 3rd Generation 1.83 mIU/ML (0.46-4.68) 07/22/17 17:00 Influenza Typ A,B (EIA) Negative for flu a/b (NEGATIVE) 07/22/17 17:00 Blood Type O POSITIVE 07/22/17 16:50 Antibody Screen Negative 07/22/17 16:50 BBK History Checked No verified bt 07/22/17 16:50 - Hospital Course Hospital Course: The patient is a 72 y/o woman w/ pmh of RA, moderate persistent asthma, hypothyroidism, NIDDM2 and past TB infection was admitted for COPD exacerbation. The patient on admission was tachycardic, CBC WNL, CMP WNL, influenza negative, D-dimer elevated. The patient had chest CT that ruled out PE, CXR showed no acute infiltrate. Patient treated w/ duonebs, methylprednisolone, and prophylactic antibiotics (levofloxacin 750 mg IV). Patient's home meds resumed. Patient's breathing improved w/ treatment. The patient was seen by clothing sorter, Dr. Mac. Patient has been seen, examined , and deemed medically fit for discharge home. The patient is to be discharged w/ levofloxacin 750 mg PO daily for 5 days, prednisone 40 mg PO daily for 4 days , and phenergan cough syrup TID. The patient is to follow up w/ [facility] and Dr. Mac in 1 week. Discharge Exam - Head Exam Head Exam: ATRAUMATIC, NORMAL INSPECTION, NORMOCEPHALIC - Eye Exam Eye Exam: Normal appearance - ENT Exam ENT Exam: Mucous Membranes Moist - Neck Exam Neck exam: Full Rom - Respiratory Exam Respiratory Exam: Clear to PA & Lateral. absent: Decreased Breath Sounds, Rales , Rhonchi, Wheezes, Respiratory Distress - Cardiovascular Exam Cardiovascular Exam: REGULAR RHYTHM. absent: Tachycardia - GI/Abdominal Exam GI & Abdominal Exam: Normal Bowel Sounds, Soft. absent: Distended, Tenderness - Extremities Exam Extremities exam: normal inspection - Neurological Exam Neurological exam: Alert, Oriented x3 - Skin Skin Exam: Dry Discharge Plan - Discharge Medications Prescriptions: levoFLOXacin [Levaquin] 750 mg PO DAILY 4 Days #4 tab Prednisone [Deltasone] 40 mg PO DAILY 4 Days #4 tablet Promethazine [Phenergan Syrup] 25 mg PO TID 5 Days #1 bottle - Follow Up Plan Condition: FAIR Disposition: HOME/ ROUTINE Instructions: Shortness of Breath (Dyspnea), Shortness of Breath (Dyspnea) (DC) Referrals: Bradly Mac MD [Family Provider] - [facility] [place] [Outside]
== END 2017-07-24 14:54 | disposition home or self-care (01) | DRG 192 ==
LOC: H.ER 15:27 → H.ERHOLD 20:38 → H.MEDSURG1 07-23 18:03 → OBSVTOIN 07-23 20:37
PROVIDERS: ADMIT Family Medicine Geriatric Medicine; ATTEND Family Medicine Geriatric Medicine
DX: J44.1 Chronic obstructive pulmonary disease with (acute) exacerbation (principal); J84.10 Pulmonary fibrosis, unspecified; E11.9 Type 2 diabetes mellitus without complications; M06.9 Rheumatoid arthritis, unspecified; E03.9 Hypothyroidism, unspecified; Z86.11 Personal history of tuberculosis; J47.9 Bronchiectasis, uncomplicated; R79.1 Abnormal coagulation profile; G89.29 Other chronic pain; J45.40 Moderate persistent asthma, uncomplicated; J06.9 Acute upper respiratory infection, unspecified; Z91.018 Allergy to other foods; M19.90 Unspecified osteoarthritis, unspecified site; R91.8 Other nonspecific abnormal finding of lung field

== ENCOUNTER 2018-01-30 11:27 | Inpatient (IN) | payer MEDICARE, SELFPAY ==
[2018-01-30 11:38] VITALS: BMI 29.2
[2018-01-30] MEDS ORDERED: Albuterol-Ipratrop 3 mg / 0.5 (3 ml) UD IH STA ×2 (12:00→18:32)
--- NOTE | 2018-01-30 12:04 | ED PDOC ---
HPI: Chest Pain Time Seen by Provider: 01/30/18 11:51 Chief Complaint (Nursing): Chest Pain History Per: Patient Onset/Duration Of Symptoms: Days (1) Current Symptoms Are (Timing): Still Present Severity: Mild Quality: Tightness Exacerbating Factors: Deep Breathing Additional Complaint(s): Chest tightness on inspiration assoc with non-productive cough and body aches and mild SOB. Denies fever. Past Medical History Vital Signs: Last Vital Signs Temp 98.9 F 01/30/18 11:38 Pulse 92 H 01/30/18 11:52 Resp 20 01/30/18 11:38 BP 151/76 H 01/30/18 11:38 Pulse Ox 100 01/30/18 12:04 - Medical History PMH: Arthritis, Asthma, COPD, Diabetes (Type II), Hypothyroidism, Rheumatoid Arthritis, Sleep Apnea Denies: Chronic Kidney Disease - Surgical History Surgical History: Cholecystectomy, Tonsillectomy, - Family History Family History: States: Unknown Family Hx, Hypertension - Home Medications Home Medications: Ambulatory Orders Medication Instructions Recorded Cholecalciferol [Vitamin D 1000 IU] 5,000 unit PO SAT 07/01/17 Folic Acid 1 mg PO DAILY 07/01/17 Glimepiride [Amaryl] 1 mg PO DAILY 07/01/17 Levothyroxine [Synthroid] 125 mcg PO DAILY #30 tab 07/04/17 Methotrexate 25 mg PO TU #30 tab 07/04/17 Sulindac 200 mg PO BID PRN 30 Days #60 07/04/17 tablet Albuterol Sulfate [Proair Hfa] 2 puff IH Q4H PRN 07/22/17 Fluticasone/Salmeterol 100/50 1 puff IH Q12 07/22/17 [Advair Diskus 100/50] Prednisone [Deltasone] 40 mg PO DAILY 4 Days #4 tablet 07/24/17 Promethazine [Phenergan Syrup] 25 mg PO TID 5 Days #1 bottle 07/24/17 levoFLOXacin [Levaquin] 750 mg PO DAILY 4 Days #4 tab 07/24/17 - Allergies Allergies/Adverse Reactions: Allergies Allergy/AdvReac Type Severity Reaction Status Date / Time Beef Containing Products AdvReac SHORTNESS Verified 07/22/17 16:00 OF BREATH [place] And Derivatives AdvReac SHORTNESS Verified 07/22/17 16:00 OF BREATH diphenhydramine AdvReac REDNESS Verified 07/22/17 17:52 [From Benadryl] methylprednisolone AdvReac VOMITING Verified 07/22/17 17:52 [From Solu-Medrol] PORK AdvReac SHORTNESS Verified 07/22/17 16:00 OF BREATH Review of Systems ROS Statement: Except As Marked, All Systems Reviewed And Found Negative Constitutional: Positive for: Malaise Respiratory: Positive for: Cough, Shortness of Breath, Pleuritic Pain Physical Exam - Reviewed Nursing Documentation Reviewed: Yes Vital Signs Reviewed: Yes - Physical Exam Appears: Positive for: Non-toxic, No Acute Distress Head Exam: Positive for: ATRAUMATIC, NORMAL INSPECTION, NORMOCEPHALIC Skin: Positive for: Normal Color, Warm, DRY Eye Exam: Positive for: EOMI, Normal appearance, PERRL ENT: Positive for: Normal ENT Inspection Neck: Positive for: Normal, Painless ROM Cardiovascular/Chest: Positive for: Regular Rate, Rhythm Respiratory: Positive for: Rhonchi, Wheezing (Mild ant exp) Gastrointestinal/Abdominal: Positive for: Normal Exam, Soft Back: Positive for: Normal Inspection Extremity: Positive for: Normal ROM Neurologic/Psych: Positive for: Alert, Oriented - Laboratory Results Result Diagrams: 01/30/18 12:05 01/30/18 12:05 - ECG O2 Sat by Pulse Oximetry: 100 Disposition - Clinical Impression Clinical Impression: Chest pain - Patient ED Disposition Is Patient to be Admitted: Transfer of Care - Disposition Disposition: Transfer of Care Disposition Time: 15:00 Condition: FAIR Forms: [email or web address] (Icelandic) Patient Signed Over To: Salvatore Michaud
[2018-01-30 12:13] LABS: BASO % 0.4 % (0.0-2.0); EOS # 0.3 K/uL (0.0-0.7); EOS % 2.5 % (0.0-4.0); LYMPH # 0.8 K/uL (1.0-4.3); LYMPH % 7.3 % (20.0-40.0); MEAN CELL VOLUME 85.8 fl (81.0-99.0); MEAN CORPUSCULAR HEMOGLOBIN 28.3 pg (27.0-31.0); MEAN CORPUSCULAR HGB CONC 32.9 g/dL (33.0-37.0); MEAN PLATELET VOLUME 8.9 fl (7.2-11.7); MONO # 1.1 K/uL (0.0-0.8); MONO % 9.4 % (0.0-10.0); NEUT % 80.4 % (50.0-75.0); PLATELET COUNT 301 K/uL (130-400); RBC 4.58 Mil/uL (3.80-5.20); RED CELL DISTRIBUTION WIDTH 13.4 % (11.5-14.5); WHITE BLOOD COUNT 11.2 K/uL (4.8-10.8)
[2018-01-30 12:26] LABS: ALB/GLOB RATIO 1.2 (1.0-2.1); ALBUMIN 3.8 g/dL (3.5-5.0); ALT/SGPT 20 U/L (9-52); AST/SGOT 21 U/L (14-36); BLOOD UREA NITROGEN 10 mg/dl (7-17); CALCIUM 9.4 mg/dL (8.4-10.2); GFR NON-AFRICAN AMERICAN > 60
[2018-01-30] MEDS ORDERED: Albuterol-Ipratrop 3 mg / 0.5 (3 ml) UD ONE ×2 (12:27→18:48)
[2018-01-30 12:51] LABS: BASOPHIL 1 % (0-2); EOSINOPHIL 3 % (0-7); LYMPHOCYTE 7 % (20-50); MONOCYTE 8 % (0-10); NEUTROPHIL 81 % (42-75); TOTAL CELLS COUNTED 100
[2018-01-30 12:52] LABS: PLATELET ESTIMATE NORMAL (NORMAL)
--- NOTE | 2018-01-30 13:29 | RAD ---
HISTORY: Cough COMPARISON: Chest x-ray performed 07/22/17 TECHNIQUE: Chest PA and lateral FINDINGS: LUNGS: Right apical pleural thickening. Right upper lobe volume loss with pleural thickening, fibrosis, and bronchiectasis similar prior study. Bibasilar atelectasis. No definite pneumothorax. Please note that chest x-ray has limited sensitivity for the detection of pulmonary masses. CARDIOVASCULAR: Heart size appears stable. Mediastinal shift towards the right as on prior study. OSSEOUS STRUCTURES: Degenerative changes. VISUALIZED UPPER ABDOMEN: Unremarkable. OTHER FINDINGS: None. IMPRESSION: Right upper lobe volume loss with associated pleural thickening, fibrosis, and bronchiectasis.
[2018-01-30] MEDS ORDERED: Iodixanol 320 MG/ML 100 ML BOTTLE IV ONE (16:10)
[2018-01-30] MEDS ORDERED: Sodium Chloride 0.9% 50 ML IV ONE (16:10)
--- NOTE | 2018-01-30 17:04 | ED PDOC ---
- Laboratory Results Result Diagrams: 01/30/18 12:05 01/30/18 12:05 Interpretation Of Abn Labs: 11.2 wbc - ECG ECG: Positive for: Interpreted By Me, Viewed By Me ECG Rhythm: Positive for: Sinus Rhythm O2 Sat by Pulse Oximetry: 100 Pulse Ox Interpretation: Normal - CT Scan/US ct Other Rad Studies (CT/US): Read By Radiologist Other Rad Interpretation: no acute - Progress ED Course And Treament: 1500: Took over care from Dr. Elaine. FU on Ct chest. Dr. Mac aware. Pt. with cough, chest tightness. 1703: Stable. Pending CT read. 1830: Stable. Pain free. Talk to Dr. Mac. Will admit and give orders when pt. reaches floor. Disposition - Clinical Impression Clinical Impression: COPD exacerbation, Bronchiectasis - POA Present On Arrival: None - Disposition Disposition: Admitted as In-Patient Disposition Time: 18:34 Condition: FAIR
--- NOTE | 2018-01-30 17:08 | CT ---
Date of service: 01/30/2018 PROCEDURE: CT Chest with contrast (Pulmonary Angiogram) HISTORY: Chest pain, bronchiectasis COMPARISON: None available. TECHNIQUE: Axial computed tomography images were obtained of the chest in the pulmonary arterial phase of enhancement. Coronal and sagittal reformatted images were created and reviewed. Intravenous contrast dose: 80 mL Visipaque 320 Radiation dose: Total exam DLP = 302.4 mGy-cm. This CT exam was performed using one or more of the following dose reduction techniques: Automated exposure control, adjustment of the mA and/or kV according to patient size, and/or use of iterative reconstruction technique. FINDINGS: PULMONARY ARTERIES: Unremarkable. No pulmonary embolism. AORTA: No acute findings. No thoracic aortic aneurysm. LUNGS: Chronic right upper and middle lobe volume loss with fibrosis, scarring and bronchiectasis. Multiple small right upper lobe granulomas. Left lower lobe adjacent 5 mm pulmonary nodules, unchanged trace left lower lobe dependent atelectasis. PLEURAL SPACES: Unremarkable. No effusion or pneumothorax. HEART: Unremarkable. No cardiomegaly. No significant pericardial effusion. LYMPH NODES: Few calcified small mediastinal lymph node. BONES, CHEST WALL: Unremarkable. No fracture or destructive lesion OTHER FINDINGS: Unremarkable. IMPRESSION: Unremarkable CT pulmonary angiogram. No pulmonary embolus. Chronic right upper lobe and middle lobe volume loss, fibrosis and bronchiectasis, unchanged. Stable left lower lobe pulmonary nodules.
[2018-01-30] MEDS ORDERED: Promethazine 12.5 mg/10 ml Syrup PO PRN (22:23)
[2018-01-30] MEDS: Fluticasone-Salmeterol 250-50mcg Diskus IH SCH ×2 (23:26→23:40)
[2018-01-30] MEDS: Insulin Regular 100 units/ml SC SCH (23:26)
[2018-01-31] MEDS ORDERED: methylPREDNISolone 60 MG in Sodium Chloride 0.9% 50 ML IV SCH (01:00)
[2018-01-31] MEDS: Albuterol-Ipratrop 3 mg / 0.5 (3 ml) UD INH SCH ×4 (02:19→19:57)
[2018-01-31 05:02] LABS: ABG ALLEN TEST YES; ARTERIAL BLOOD GAS HCO3 25.5 mmol/L (21-28); ARTERIAL BLOOD GAS HEMOGLOBIN 13.3 g/dL (11.7-17.4); ARTERIAL BLOOD GAS O2 CAPACITY 18.4 mL/dL (16-24); ARTERIAL BLOOD GAS O2 CONTENT 18.1 ML/dL (15-23); ARTERIAL BLOOD GAS O2 SAT 98.4 % (95-98); ARTERIAL BLOOD GAS PCO2 43 mm/Hg (35-45); ARTERIAL BLOOD GAS PH 7.39 (7.35-7.45); ARTERIAL BLOOD GAS PO2 97 mm/Hg (80-100); ARTERIAL BLOOD GAS TCO2 27.3 mmol/L (22-28)
[2018-01-31] MEDS: Levothyroxine 125 MCG TAB PO SCH (06:06)
[2018-01-31 06:37] LABS: HEMOGLOBIN 13.1 g/dL (12.0-16.0); MEAN CELL VOLUME 86.1 fl (81.0-99.0); MEAN CORPUSCULAR HEMOGLOBIN 28.3 pg (27.0-31.0); MEAN CORPUSCULAR HGB CONC 32.9 g/dL (33.0-37.0); RBC 4.64 Mil/uL (3.80-5.20); RED CELL DISTRIBUTION WIDTH 13.5 % (11.5-14.5); WHITE BLOOD COUNT 6.6 K/uL (4.8-10.8)
[2018-01-31] MEDS: Insulin Regular 100 units/ml SC SCH ×5 (06:47→23:22)
[2018-01-31 07:04] LABS: BLOOD UREA NITROGEN 14 mg/dl (7-17); GFR NON-AFRICAN AMERICAN > 60
[2018-01-31] MEDS: Fluticasone-Salmeterol 250-50mcg Diskus IH SCH (08:54)
[2018-01-31] MEDS ORDERED: Cholecalciferol 1,000 INTLU TAB PO SCH (09:00)
[2018-01-31] MEDS: Enoxaparin 40 mg Syringe SC SCH (09:02)
[2018-01-31] MEDS: GlipiZIDE 2.5 mg SR Tab PO SCH (09:02)
[2018-01-31] MEDS: SULINDAC 200 MG PO PRN ×2 (09:04→23:53)
--- NOTE | 2018-01-31 11:02 | CP.PCM.HP ---
History of Present Illness - History of Present Illness History of Present Illness: 73 YR OLD FEMALE ADMITTED BECAUSE OF CHEST PAINS/SOB AND EXERCISE INTOLERANCE X 3 DAYS.DENIES COUGH OR PALPITATIONS. HX OF RHEUMATOID ARTHRITIS AND CHRONIC LUNG DISEASE. Present on Admission - Present on Admission Any Indicators Present on Admission: Yes Past Patient History - Past Medical History & Family History Past Medical History?: Yes - Past Social History Smoking Status: Never Smoked - CARDIAC Hx Cardiac Disorders: No - PULMONARY Hx Asthma: Yes Hx Chronic Obstructive Pulmonary Disease (COPD): Yes Hx Sleep Apnea: Yes Hx Tuberculosis: Yes (1954) - NEUROLOGICAL Hx Neurological Disorder: No - HEENT Hx HEENT Problems: No - RENAL Hx Chronic Kidney Disease: No - ENDOCRINE/METABOLIC Hx Endocrine Disorders: Yes Hx Diabetes Mellitus Type 2: Yes Hx Hypothyroidism: Yes - HEMATOLOGICAL/ONCOLOGICAL Hx Blood Disorders: No - INTEGUMENTARY Hx Dermatological Problems: No - MUSCULOSKELETAL/RHEUMATOLOGICAL Hx Falls: No Hx Rheumatoid Arthritis: Yes - GASTROINTESTINAL Hx Gastrointestinal Disorders: No - GENITOURINARY/GYNECOLOGICAL Hx Genitourinary Disorders: No - PSYCHIATRIC Hx Substance Use: No - SURGICAL HISTORY Hx Cholecystectomy: Yes Hx Tonsillectomy: Yes Other/Comment: Bunionectomy - ANESTHESIA Hx Anesthesia: Yes Hx Anesthesia Reactions: No Hx Malignant Hyperthermia: No Meds Allergies/Adverse Reactions: Allergies Allergy/AdvReac Type Severity Reaction Status Date / Time fluticasone Allergy SWELLING Verified 01/31/18 07:36 [From Advair Diskus] salmeterol Allergy SWELLING Verified 01/31/18 07:36 [From Advair Diskus] Beef Containing Products AdvReac SHORTNESS Verified 01/30/18 19:47 OF BREATH [place] And Derivatives AdvReac SHORTNESS Verified 01/30/18 19:47 OF BREATH diphenhydramine AdvReac REDNESS Verified 01/30/18 19:47 [From Benadryl] methylprednisolone AdvReac VOMITING Verified 01/30/18 19:47 [From Solu-Medrol] PORK AdvReac SHORTNESS Verified 01/30/18 19:47 OF BREATH Physical Exam - Constitutional Appears: Chronically Ill - Head Exam Head Exam: ATRAUMATIC, NORMAL INSPECTION, NORMOCEPHALIC - Eye Exam Eye Exam: EOMI, Normal appearance, PERRL Pupil Exam: NORMAL ACCOMODATION, PERRL - ENT Exam ENT Exam: Mucous Membranes Moist, Normal Exam - Neck Exam Neck exam: Positive for: Normal Inspection - Respiratory Exam Respiratory Exam: Decreased Breath Sounds, Prolonged Expiratory Phase, Rales, Wheezes, NORMAL BREATHING PATTERN Additional comments: TENDER CHEST WALL - Cardiovascular Exam Cardiovascular Exam: REGULAR RHYTHM - GI/Abdominal Exam GI & Abdominal Exam: Normal Bowel Sounds, Soft. absent: Tenderness - Rectal Exam Rectal Exam: NORMAL INSPECTION - Extremities Exam Extremities exam: Positive for: normal inspection - Back Exam Back exam: NORMAL INSPECTION - Neurological Exam Neurological exam: Alert, CN II-XII Intact, Normal Gait, Oriented x3, Reflexes Normal - Psychiatric Exam Psychiatric exam: Normal Affect, Normal Mood - Skin Skin Exam: Dry, Intact, Normal Color, Warm Results - Vital Signs Recent Vital Signs: Last Vital Signs Temp 97.4 F L 01/31/18 08:35 Pulse 82 01/31/18 08:35 Resp 20 01/31/18 08:35 BP 135/79 01/31/18 08:35 Pulse Ox 98 01/31/18 08:35 - Labs Result Diagrams: 01/31/18 05:00 01/31/18 05:00 Labs: Laboratory Results - last 24 hr 01/30/18 01/30/18 01/30/18 12:05 12:05 12:16 WBC 11.2 H D RBC 4.58 Hgb 13.0 Hct 39.3 MCV 85.8 MCH 28.3 MCHC 32.9 L RDW 13.4 Plt Count 301 MPV 8.9 Neut % (Auto) 80.4 H Lymph % (Auto) 7.3 L [place] % (Auto) 9.4 Eos % (Auto) 2.5 Baso % (Auto) 0.4 Neut # (Auto) 9.0 H Lymph # (Auto) 0.8 L [place] # (Auto) 1.1 H Eos # (Auto) 0.3 Baso # (Auto) 0.0 Neutrophils % (Manual) 81 H Lymphocytes % (Manual) 7 L Monocytes % (Manual) 8 Eosinophils % (Manual) 3 Basophils % (Manual) 1 Platelet Estimate Normal pCO2 pO2 HCO3 ABG pH ABG Total CO2 ABG O2 Saturation ABG O2 Content ABG Base Excess ABG Hemoglobin ABG Carboxyhemoglobin POC ABG HHb (Measured) ABG Methemoglobin ABG O2 Capacity [place] Test A-a O2 Difference Hgb O2 Saturation FiO2 Sodium 135 Potassium 4.2 Chloride 100 Carbon Dioxide 27 Anion Gap 12 BUN 10 Creatinine 0.6 L Est GFR ( Amer) > 60 Est GFR (Non-Af Amer) > 60 POC Glucose (mg/dL) 345 H Random Glucose 364 H Calcium 9.4 Total Bilirubin 0.4 AST 21 ALT 20 Alkaline Phosphatase 107 Troponin I < 0.0120 Total Protein 6.9 Albumin 3.8 Globulin 3.1 Albumin/Globulin Ratio 1.2 01/30/18 01/30/18 01/31/18 19:58 22:25 05:00 WBC 6.6 RBC 4.64 Hgb 13.1 Hct 40.0 MCV 86.1 MCH 28.3 MCHC 32.9 L RDW 13.5 Plt Count 304 MPV Neut % (Auto) Lymph % (Auto) [place] % (Auto) Eos % (Auto) Baso % (Auto) Neut # (Auto) Lymph # (Auto) [place] # (Auto) Eos # (Auto) Baso # (Auto) Neutrophils % (Manual) Lymphocytes % (Manual) Monocytes % (Manual) Eosinophils % (Manual) Basophils % (Manual) Platelet Estimate pCO2 pO2 HCO3 ABG pH ABG Total CO2 ABG O2 Saturation ABG O2 Content ABG Base Excess ABG Hemoglobin ABG Carboxyhemoglobin POC ABG HHb (Measured) ABG Methemoglobin ABG O2 Capacity [place] Test A-a O2 Difference Hgb O2 Saturation FiO2 Sodium Potassium Chloride Carbon Dioxide Anion Gap BUN Creatinine Est GFR ( Amer) Est GFR (Non-Af Amer) POC Glucose (mg/dL) 322 H 426 H* Random Glucose Calcium Total Bilirubin AST ALT Alkaline Phosphatase Troponin I Total Protein Albumin Globulin Albumin/Globulin Ratio 01/31/18 01/31/18 01/31/18 05:00 05:00 05:15 WBC RBC Hgb Hct MCV MCH MCHC RDW Plt Count MPV Neut % (Auto) Lymph % (Auto) [place] % (Auto) Eos % (Auto) Baso % (Auto) Neut # (Auto) Lymph # (Auto) [place] # (Auto) Eos # (Auto) Baso # (Auto) Neutrophils % (Manual) Lymphocytes % (Manual) Monocytes % (Manual) Eosinophils % (Manual) Basophils % (Manual) Platelet Estimate pCO2 43 pO2 97 HCO3 25.5 ABG pH 7.39 ABG Total CO2 27.3 ABG O2 Saturation 98.4 H ABG O2 Content 18.1 ABG Base Excess 0.8 ABG Hemoglobin 13.3 ABG Carboxyhemoglobin 1.3 POC ABG HHb (Measured) 1.6 ABG Methemoglobin 1.0 ABG O2 Capacity 18.4 [place] Test Yes A-a O2 Difference 49.0 Hgb O2 Saturation 96.0 FiO2 28.0 Sodium 136 Potassium 4.0 Chloride 102 Carbon Dioxide 27 Anion Gap 11 BUN 14 Creatinine 0.6 L Est GFR ( Amer) > 60 Est GFR (Non-Af Amer) > 60 POC Glucose (mg/dL) 344 H Random Glucose 361 H Calcium 10.0 Total Bilirubin AST ALT Alkaline Phosphatase Troponin I Total Protein Albumin Globulin Albumin/Globulin Ratio Assessment & Plan - Assessment and Plan (Free Text) Assessment: COPD EXACERBATION CHRONIC LUNG DZ RHEUMATOID ARTHRITIS/RHEUMATOID LUNG Plan: CONTINUE RX ORDERED - Date & Time Date: 01/31/18 Time: 11:04
[2018-01-31] MEDS ORDERED: DiphenhydrAMINE 50 mg/ml Inj IVP SCH (17:00)
[2018-02-01] MEDS: Albuterol-Ipratrop 3 mg / 0.5 (3 ml) UD INH SCH ×4 (02:05→19:08)
[2018-02-01] MEDS: Levothyroxine 125 MCG TAB PO SCH (06:56)
[2018-02-01] MEDS: Insulin Regular 100 units/ml SC SCH ×4 (06:57→22:04)
[2018-02-01] MEDS: Enoxaparin 40 mg Syringe SC SCH (08:40)
[2018-02-01] MEDS: GlipiZIDE 2.5 mg SR Tab PO SCH (08:42)
[2018-02-01] MEDS ORDERED: Apap-Butalbital-Caffeine 325-50-40mg Tab PO PRN (12:23)
--- NOTE | 2018-02-01 12:27 | CP.PCM.PN ---
Subjective - Date & Time of Evaluation Date of Evaluation: 02/01/18 Time of Evaluation: 12:27 - Subjective Subjective: C/O HEADACHES AND SOB STATES THAT SHE HAS A IN THE FAMILY THIS AM AND IS MORE DYSPNEIC Objective - Vital Signs/Intake and Output Vital Signs (last 24 hours): Temp Pulse Resp BP Pulse Ox 97.6 F 97 H 20 138/74 96 02/01/18 08:21 02/01/18 08:21 02/01/18 08:21 02/01/18 08:21 02/01/18 08:21 - Medications Medications: Current Medications Albuterol/Ipratropium (Duoneb 3 Mg/0.5 Mg (3 Ml) Ud) 3 ml INH RQ6 [facility] Last Admin: 02/01/18 07:35 Dose: 3 ml Cholecalciferol (Vitamin D) 5,000 intlu PO SAT [facility] Last Admin: 01/31/18 09:04 Dose: 5,000 intlu Enoxaparin Sodium (Lovenox) 40 mg SC DAILY [facility] PRN Reason: Protocol Last Admin: 02/01/18 08:40 Dose: 40 mg Glipizide (Glucotrol Xl) 2.5 mg PO BRK [facility] Last Admin: 02/01/18 08:42 Dose: 2.5 mg Home Med (Leflunomide [Arava]) 20 mg PO DAILY [facility] Last Admin: 02/01/18 08:41 Dose: 20 mg Home Med (Sulindac [Sulindac]) 200 mg PO BID PRN PRN Reason: Pain, moderate (4-7) Last Admin: 01/31/18 23:53 Dose: 200 mg Methylprednisolone 40 mg/ (Sodium Chloride) 50 mls @ 100 mls/hr IV Q12 [facility] Insulin Human Regular (Humulin R) 0 units SC ACCU-CHECK [facility] PRN Reason: Protocol Last Admin: 02/01/18 06:57 Dose: 4 u Levothyroxine Sodium (Synthroid) 125 mcg PO DAILY@0630 [facility] Last Admin: 02/01/18 06:56 Dose: 125 mcg Promethazine HCl (Phenergan Syrup) 12.5 mg PO Q6 PRN PRN Reason: Cough - Labs Labs: 01/31/18 05:00 01/31/18 05:00 - Constitutional Appears: Chronically Ill - Head Exam Head Exam: ATRAUMATIC, NORMAL INSPECTION, NORMOCEPHALIC - Eye Exam Eye Exam: EOMI, Normal appearance, PERRL Pupil Exam: NORMAL ACCOMODATION, PERRL - ENT Exam ENT Exam: Mucous Membranes Moist, Normal Exam - Neck Exam Neck Exam: Full ROM, Normal Inspection. absent: Lymphadenopathy - Respiratory Exam Respiratory Exam: Decreased Breath Sounds, Wheezes, NORMAL BREATHING PATTERN - Cardiovascular Exam Cardiovascular Exam: REGULAR RHYTHM, +S1, +S2. absent: Murmur - GI/Abdominal Exam GI & Abdominal Exam: Soft, Normal Bowel Sounds. absent: Tenderness - Rectal Exam Rectal Exam: NORMAL INSPECTION - Extremities Exam Extremities Exam: Full ROM, Normal Capillary Refill, Normal Inspection. absent : Joint Swelling, Pedal Edema - Back Exam Back Exam: NORMAL INSPECTION - Neurological Exam Neurological Exam: Alert, Awake, CN II-XII Intact, Normal Gait, Oriented x3 - Psychiatric Exam Psychiatric exam: Normal Affect, Normal Mood - Skin Skin Exam: Dry, Intact, Normal Color, Warm Assessment and Plan - Assessment and Plan (Free Text) Assessment: COPD EXAC ANXIETY WITH HEADACHES HTN DM TYPE 2--POORLY CONTROLLED RHEUMATHOID ARTHRITIS PULMONARY SCAR Plan: TAPER SEROIDS XANAX MONITOR GLUCOSE FIORECET FOR HEADACHES
[2018-02-01] MEDS ORDERED: Insulin Regular 100 units/ml SC STA (18:24)
[2018-02-01] MEDS ORDERED: methylPREDNISolone 40 MG in Sodium Chloride 0.9% 50 ML IV SCH (21:00)
[2018-02-01] MEDS: MethylPREDNISolone 40 mg Vial IVP SCH (22:09)
[2018-02-02] MEDS: Albuterol-Ipratrop 3 mg / 0.5 (3 ml) UD INH SCH ×4 (02:02→19:05)
[2018-02-02] MEDS: Insulin Regular 100 units/ml SC SCH ×4 (08:38→22:19)
[2018-02-02] MEDS: SULINDAC 200 MG PO PRN (08:39)
[2018-02-02] MEDS: Levothyroxine 125 MCG TAB PO SCH (08:40)
[2018-02-02] MEDS: Enoxaparin 40 mg Syringe SC SCH (08:40)
[2018-02-02] MEDS: MethylPREDNISolone 40 mg Vial IVP SCH (08:40)
[2018-02-02] MEDS: GlipiZIDE 2.5 mg SR Tab PO SCH (08:41)
--- NOTE | 2018-02-02 10:19 | CP.PCM.PN ---
Subjective - Date & Time of Evaluation Date of Evaluation: 02/02/18 Time of Evaluation: 10:20 - Subjective Subjective: SHORTNESS OF BREATH IMPROVING STILL HAS HEADACHES Objective - Vital Signs/Intake and Output Vital Signs (last 24 hours): Temp Pulse Resp BP Pulse Ox 97.6 F 85 20 131/75 97 02/02/18 08:18 02/02/18 08:18 02/02/18 08:18 02/02/18 08:18 02/02/18 08:18 - Medications Medications: Current Medications Acetaminophen/Butalbital/Caffeine (Fioricet) 1 tab PO Q4 PRN PRN Reason: Headache Last Admin: 02/02/18 08:39 Dose: 1 tab Albuterol/Ipratropium (Duoneb 3 Mg/0.5 Mg (3 Ml) Ud) 3 ml INH RQ6 [facility] Last Admin: 02/02/18 07:30 Dose: 3 ml Alprazolam (Xanax) 0.25 mg PO Q12 [facility] Stop: 02/08/18 12:31 Last Admin: 02/01/18 21:43 Dose: 0.25 mg Cholecalciferol (Vitamin D) 5,000 intlu PO SAT [facility] Last Admin: 01/31/18 09:04 Dose: 5,000 intlu Enoxaparin Sodium (Lovenox) 40 mg SC DAILY [facility] PRN Reason: Protocol Last Admin: 02/02/18 08:40 Dose: 40 mg Glipizide (Glucotrol Xl) 2.5 mg PO BRK [facility] Last Admin: 02/02/18 08:41 Dose: 2.5 mg Home Med (Leflunomide [Arava]) 20 mg PO DAILY [facility] Last Admin: 02/02/18 08:39 Dose: 20 mg Home Med (Sulindac [Sulindac]) 200 mg PO BID PRN PRN Reason: Pain, moderate (4-7) Last Admin: 02/02/18 08:39 Dose: 200 mg Insulin Human Regular (Humulin R) 0 units SC ACCU-CHECK [facility] PRN Reason: Protocol Last Admin: 02/02/18 08:38 Dose: 2 u Levothyroxine Sodium (Synthroid) 125 mcg PO DAILY@0630 [facility] Last Admin: 02/02/18 08:40 Dose: 125 mcg Methylprednisolone (Solu-Medrol) 40 mg IVP Q12 [facility] Last Admin: 02/02/18 08:40 Dose: 40 mg Promethazine HCl (Phenergan Syrup) 12.5 mg PO Q6 PRN PRN Reason: Cough - Labs Labs: 01/31/18 05:00 01/31/18 05:00 - Constitutional Appears: No Acute Distress - Head Exam Head Exam: ATRAUMATIC, NORMAL INSPECTION, NORMOCEPHALIC - Eye Exam Eye Exam: EOMI, Normal appearance, PERRL Pupil Exam: NORMAL ACCOMODATION, PERRL - ENT Exam ENT Exam: Mucous Membranes Moist, Normal Exam - Neck Exam Neck Exam: Full ROM, Normal Inspection. absent: Lymphadenopathy - Respiratory Exam Respiratory Exam: Decreased Breath Sounds, Prolonged Expiratory Phase, Wheezes, NORMAL BREATHING PATTERN - Cardiovascular Exam Cardiovascular Exam: REGULAR RHYTHM, +S1, +S2. absent: Murmur - GI/Abdominal Exam GI & Abdominal Exam: Soft, Normal Bowel Sounds. absent: Tenderness - Rectal Exam Rectal Exam: NORMAL INSPECTION - Extremities Exam Extremities Exam: Full ROM, Normal Capillary Refill, Normal Inspection. absent : Joint Swelling, Pedal Edema - Back Exam Back Exam: NORMAL INSPECTION - Neurological Exam Neurological Exam: Alert, Awake, CN II-XII Intact, Normal Gait, Oriented x3 - Psychiatric Exam Psychiatric exam: Normal Affect, Normal Mood - Skin Skin Exam: Dry, Intact, Normal Color, Warm Assessment and Plan - Assessment and Plan (Free Text) Assessment: ACUTE EXAC OF COPD ARTHRITIS CHRONIC INTERSTITIAL LUNG DZ DM Plan: TAPER STEROIDS D/C HOME IN AM IF STABLE
[2018-02-03 00:07] VITALS: RESP 18
[2018-02-03] MEDS: Albuterol-Ipratrop 3 mg / 0.5 (3 ml) UD INH SCH ×3 (01:22→13:30)
[2018-02-03] MEDS: Levothyroxine 125 MCG TAB PO SCH (06:16)
[2018-02-03] MEDS: Insulin Regular 100 units/ml SC SCH (08:25)
[2018-02-03] MEDS: Enoxaparin 40 mg Syringe SC SCH (08:27)
[2018-02-03] MEDS: GlipiZIDE 2.5 mg SR Tab PO SCH (08:28)
[2018-02-03] MEDS: SULINDAC 200 MG PO PRN (08:28)
[2018-02-03] MEDS ORDERED: MethylPREDNISolone 40 mg Vial IVP SCH (09:00)
--- NOTE | 2018-02-03 09:14 | CP.PCM.DIS ---
Provider - Provider Date of Admission: 01/30/18 18:23 Attending physician: Bradly Mac MD Time Spent in preparation of Discharge (in minutes): 35 Diagnosis - Discharge Diagnosis (1) Bronchiectasis Status: Acute (2) COPD exacerbation Status: Acute (3) Hypothyroidism Status: Acute (4) Rheumatoid arthritis Status: Acute Hospital Course - Lab Results Lab Results: Most Recent Lab Values WBC 6.6 K/uL (4.8-10.8) 01/31/18 05:00 RBC 4.64 Mil/uL (3.80-5.20) 01/31/18 05:00 Hgb 13.1 g/dL (12.0-16.0) 01/31/18 05:00 Hct 40.0 % (34.0-47.0) 01/31/18 05:00 MCV 86.1 fl (81.0-99.0) 01/31/18 05:00 MCH 28.3 pg (27.0-31.0) 01/31/18 05:00 MCHC 32.9 g/dL (33.0-37.0) L 01/31/18 05:00 RDW 13.5 % (11.5-14.5) 01/31/18 05:00 Plt Count 304 K/uL (130-400) 01/31/18 05:00 MPV 8.9 fl (7.2-11.7) 01/30/18 12:05 Neut % (Auto) 80.4 % (50.0-75.0) H 01/30/18 12:05 Lymph % (Auto) 7.3 % (20.0-40.0) L 01/30/18 12:05 Pitkin % (Auto) 9.4 % (0.0-10.0) 01/30/18 12:05 Eos % (Auto) 2.5 % (0.0-4.0) 01/30/18 12:05 Baso % (Auto) 0.4 % (0.0-2.0) 01/30/18 12:05 Neut # (Auto) 9.0 K/uL (1.8-7.0) H 01/30/18 12:05 Lymph # (Auto) 0.8 K/uL (1.0-4.3) L 01/30/18 12:05 Pitkin # (Auto) 1.1 K/uL (0.0-0.8) H 01/30/18 12:05 Eos # (Auto) 0.3 K/uL (0.0-0.7) 01/30/18 12:05 Baso # (Auto) 0.0 K/uL (0.0-0.2) 01/30/18 12:05 Neutrophils % (Manual) 81 % (42-75) H 01/30/18 12:05 Lymphocytes % (Manual) 7 % (20-50) L 01/30/18 12:05 Monocytes % (Manual) 8 % (0-10) 01/30/18 12:05 Eosinophils % (Manual) 3 % (0-7) 01/30/18 12:05 Basophils % (Manual) 1 % (0-2) 01/30/18 12:05 Platelet Estimate Normal (NORMAL) 01/30/18 12:05 pCO2 43 mm/Hg (35-45) 01/31/18 05:00 pO2 97 mm/Hg (80-100) 01/31/18 05:00 HCO3 25.5 mmol/L (21-28) 01/31/18 05:00 ABG pH 7.39 (7.35-7.45) 01/31/18 05:00 ABG Total CO2 27.3 mmol/L (22-28) 01/31/18 05:00 ABG O2 Saturation 98.4 % (95-98) H 01/31/18 05:00 ABG O2 Content 18.1 ML/dL (15-23) 01/31/18 05:00 ABG Base Excess 0.8 mmol/L (-2.0-3.0) 01/31/18 05:00 ABG Hemoglobin 13.3 g/dL (11.7-17.4) 01/31/18 05:00 ABG Carboxyhemoglobin 1.3 % (0.5-1.5) 01/31/18 05:00 POC ABG HHb (Measured) 1.6 % (0.0-5.0) 01/31/18 05:00 ABG Methemoglobin 1.0 % (0.0-3.0) 01/31/18 05:00 ABG O2 Capacity 18.4 mL/dL (16-24) 01/31/18 05:00 Norman Test Yes 01/31/18 05:00 A-a O2 Difference 49.0 mm/Hg 01/31/18 05:00 Hgb O2 Saturation 96.0 % (95.0-98.0) 01/31/18 05:00 FiO2 28.0 % 01/31/18 05:00 Sodium 136 mmol/l (132-148) 01/31/18 05:00 Potassium 4.0 MMOL/L (3.6-5.0) 01/31/18 05:00 Chloride 102 mmol/L (98-107) 01/31/18 05:00 Carbon Dioxide 27 mmol/L (22-30) 01/31/18 05:00 Anion Gap 11 (10-20) 01/31/18 05:00 BUN 14 mg/dl (7-17) 01/31/18 05:00 Creatinine 0.6 mg/dl (0.7-1.2) L 01/31/18 05:00 Est GFR ( Amer) > 60 01/31/18 05:00 Est GFR (Non-Af Amer) > 60 01/31/18 05:00 POC Glucose (mg/dL) 289 mg/dL (65-110) H 02/02/18 20:59 Random Glucose 361 mg/dL (65-105) H 01/31/18 05:00 Calcium 10.0 mg/dL (8.4-10.2) 01/31/18 05:00 Total Bilirubin 0.4 mg/dl (0.2-1.3) 01/30/18 12:05 AST 21 U/L (14-36) 01/30/18 12:05 ALT 20 U/L (9-52) 01/30/18 12:05 Alkaline Phosphatase 107 U/L (38-126) 01/30/18 12:05 Troponin I < 0.0120 ng/mL (0.00-0.120) 01/30/18 12:05 Total Protein 6.9 G/DL (6.3-8.2) 01/30/18 12:05 Albumin 3.8 g/dL (3.5-5.0) 01/30/18 12:05 Globulin 3.1 gm/dL (2.2-3.9) 08/31/18 12:05 Albumin/Globulin Ratio 1.2 (1.0-2.1) 01/30/18 12:05 - Hospital Course Hospital Course: SOB RESOLVED Discharge Exam - Head Exam Head Exam: ATRAUMATIC, NORMAL INSPECTION, NORMOCEPHALIC - Eye Exam Eye Exam: EOMI, Normal appearance, PERRL Pupil Exam: NORMAL ACCOMODATION, PERRL - Respiratory Exam Respiratory Exam: Prolonged Expiratory Phase - Cardiovascular Exam Cardiovascular Exam: REGULAR RHYTHM - GI/Abdominal Exam GI & Abdominal Exam: Normal Bowel Sounds - Rectal Exam Rectal Exam: NORMAL INSPECTION - Neurological Exam Neurological exam: Alert, CN II-XII Intact, Normal Gait, Oriented x3, Reflexes Normal - Psychiatric Exam Psychiatric exam: Normal Affect, Normal Mood - Skin Skin Exam: Dry, Intact, Normal Color, Warm Discharge Plan - Follow Up Plan Condition: FAIR Disposition: HOME/ ROUTINE Patient education suggested?: Yes Additional Instructions: DISCHARGE TODAY FOLLOW UP WITH PMD
[2018-02-03] MEDS ORDERED: Cholecalciferol 1,000 INTLU TAB PO ONE (10:22)
[2018-02-03 12:16] VITALS: BP 135/78; PULSE 93; TEMP 98.3; O2SAT 97
== END 2018-02-03 15:00 | disposition home or self-care (01) | DRG 191 ==
LOC: H.ER 11:27 → H.ERHOLD 18:23 → H.TEL 21:47
PROVIDERS: ADMIT Internal Medicine Pulmonary Disease; ATTEND Internal Medicine Pulmonary Disease
DX: J44.1 Chronic obstructive pulmonary disease with (acute) exacerbation (principal); J84.9 Interstitial pulmonary disease, unspecified; E03.9 Hypothyroidism, unspecified; F41.9 Anxiety disorder, unspecified; I10 Essential (primary) hypertension; E11.9 Type 2 diabetes mellitus without complications; R51 Headache; M06.9 Rheumatoid arthritis, unspecified; G47.30 Sleep apnea, unspecified

== ENCOUNTER 2018-08-02 13:53 | Emergency (ER) | payer MEDICARE, SELFPAY ==
[2018-08-02 13:54] VITALS: BMI 29.2
[2018-08-02 14:02] VITALS: RESP 18; TEMP 98.5; O2SAT 99
--- NOTE | 2018-08-02 14:36 | ED PDOC ---
HPI: CCC, URI, Sore Throat Time Seen by Provider: 08/02/18 14:03 Chief Complaint (Nursing): Cough, Cold, Congestion Chief Complaint (Provider): Cough, Congestion, Rash History Per: Patient History/Exam Limitations: no limitations Onset/Duration Of Symptoms: Days (x1 week) Current Symptoms Are (Timing): Still Present Additional Complaint(s): 73 year old female presents to the ED for evaluation of a cough productive of green sputum for the past week associated with congestion and increased tearing to both eyes, stating it is difficult to open them in the mornings. For over two weeks, patient additionally reports a rash to both sides of her neck. Patient expresses concern over shingles. Denies other complaints. PMD: True [place] Past Medical History Reviewed: Historical Data, Nursing Documentation, Vital Signs Vital Signs: Last Vital Signs Temp 98.5 F 08/02/18 13:57 Pulse 111 H 08/02/18 13:57 Resp 18 08/02/18 13:57 BP 145/85 08/02/18 13:57 Pulse Ox 99 08/02/18 13:57 - Medical History PMH: Arthritis, Asthma, COPD, Diabetes (Type II), Hypothyroidism, Rheumatoid Arthritis, Sleep Apnea Denies: Chronic Kidney Disease - Surgical History Surgical History: Cholecystectomy, Tonsillectomy, - Family History Family History: States: Hypertension - Social History Current smoker - smoking cessation education provided: No Alcohol: Social Drugs: Denies - Home Medications Home Medications: Ambulatory Orders Medication Instructions Recorded Cholecalciferol [Vitamin D 1000 IU] 5,000 unit PO SAT 07/01/17 Glimepiride [Amaryl] 1 mg PO DAILY 07/01/17 Levothyroxine [Synthroid] 125 mcg PO DAILY #30 tab 07/04/17 Sulindac 200 mg PO BID PRN 30 Days #60 07/04/17 tablet Albuterol Sulfate [Proair Hfa] 2 puff IH Q4H PRN 07/22/17 Budesonide/Formoterol Fumarate 2 puff INH PRN PRN 01/30/18 [Symbicort 160-4.5 Mcg Inhaler] Leflunomide [Arava] 20 mg PO DAILY 01/30/18 Albuterol/Ipratropium [Duoneb 3 3 ml IH QID #100 neb 02/03/18 MG/3 Ml-0.5 MG/3 Ml 3 Ml] predniSONE [predniSONE Tab] 10 mg PO DAILY #7 tab 02/03/18 Azithromycin [Zithromax] 250 mg PO DAILY #6 tab 08/02/18 Ciprofloxacin 0.3% [Ciloxan 0.3% 1 - 2 drop BOTHEYES Q4 #1 bottle 08/02/18 Ophth SOLN] - Allergies Allergies/Adverse Reactions: Allergies Allergy/AdvReac Type Severity Reaction Status Date / Time fluticasone Allergy SWELLING Verified 01/31/18 07:36 [From Advair Diskus] salmeterol Allergy SWELLING Verified 01/31/18 07:36 [From Advair Diskus] Beef Containing Products AdvReac SHORTNESS Verified 01/30/18 19:47 OF BREATH [place] And Derivatives AdvReac SHORTNESS Verified 01/30/18 19:47 OF BREATH diphenhydramine AdvReac REDNESS Verified 01/30/18 19:47 [From Benadryl] methylprednisolone AdvReac VOMITING Verified 01/30/18 19:47 [From Solu-Medrol] PORK AdvReac SHORTNESS Verified 01/30/18 19:47 OF BREATH Review of Systems ROS Statement: Except As Marked, All Systems Reviewed And Found Negative Eyes: Positive for: Other (tearing to bilateral eyes with difficulty opening them in morning) ENT: Positive for: Nose Congestion Respiratory: Positive for: Cough (productive), Sputum (green) Skin: Positive for: Rash (both sides of neck) Physical Exam - Reviewed Nursing Documentation Reviewed: Yes Vital Signs Reviewed: Yes - Physical Exam Appears: Positive for: No Acute Distress Skin: Positive for: Normal Color (except for areas of hyperpigmented thickening to bilateral posterior aspects of neck without erythema, pustules, or vesicles) Eye Exam: Positive for: Other (tearing noted bilaterally, but no discharge). Negative for: Periorbital swelling, Periorbital tenderness, Conjunctival injection ENT: Positive for: Normal ENT Inspection. Negative for: Pharyngeal Erythema, Tonsillar Exudate, Tonsillar Swelling Cardiovascular/Chest: Positive for: Regular Rate, Rhythm. Negative for: Tachycardia Respiratory: Positive for: Normal Breath Sounds. Negative for: Respiratory Dist ress Neurologic/Psych: Positive for: Alert, Oriented (x3) - ECG O2 Sat by Pulse Oximetry: 99 (RA) Pulse Ox Interpretation: Normal Medical Decision Making Medical Decision Making: Time: 1410 Initial Impression: cough, congestion Initial Plan: --CXR --Patient informed that her rash is secondary to her diabetes, and if she controls her sugar more strictly, then her rash will improve. 1447 CXR FINDINGS: LUNGS: Chronic right lung volume loss with fibrosis, scarring and bronchiectasis, unchanged. Left lung grossly clear. PLEURA: No significant pleural effusion identified. No pneumothorax apparent. CARDIOVASCULAR: Mediastinal shift to the right. Aortic atherosclerotic calcifications. Cardiomediastinal silhouette unchanged. OSSEOUS STRUCTURES: Unchanged. VISUALIZED UPPER ABDOMEN: Normal. OTHER FINDINGS: None. IMPRESSION: Chronic right lung volume loss with fibrosis, scarring and bronchiectasis. No acute pulmonary disease. Scribe Attestation: Documented by Lynn Garvey, acting as a scribe for Gabe Aragon PA-C. Provider Scribe Attestation: All medical record entries made by the Scribe were at my direction and personally dictated by me. I have reviewed the chart and agree that the record accurately reflects my personal performance of the history, physical exam, medical decision making, and the department course for this patient. I have also personally directed, reviewed, and agree with the discharge instructions and disposition. Disposition - Clinical Impression Clinical Impression: Acute bronchitis, Conjunctivitis, Acanthosis nigricans - Patient ED Disposition Is Patient to be Admitted: No - Disposition Referrals: [facility] [Outside] Disposition: Routine/Home Disposition Time: 14:53 Condition: STABLE Additional Instructions: FOLLOW UP WITH [facility] FOR FURTHER EVALUATION RETURN TO ED IMMEDIATELY IF SYMPTOMS WORSEN SELENE GARCIA, thank you for letting us take care of you today. Your provider was Marge Tai MD and you were treated for NECK PAIN,EYES WATERY. The emergency medical care you received today was directed at your acute symptoms. If you were prescribed any medication, please fill it and take as directed. It may take several days for your symptoms to resolve. Return to the Emergency Department if your symptoms worsen, do not improve, or if you have any other problems. Please contact your doctor or call one of the physicians/clinics you have been referred to that are listed on the Patient Visit Information form that is included in your discharge packet. Bring any paperwork you were given at discharge with you along with any medications you are taking to your follow up visit. Our treatment cannot replace ongoing medical care by a primary care provider outside of the emergency department. Thank you for allowing the [facility] team to be part of your care today. If you had an X-Ray or CT scan: A Radiologist will review the ED reading if any change in treatment is needed we will contact you. If you had a blood, urine, or wound culture: It will take several days for the results, if any change in treatment is needed we will contact you. If you had an STI test: It will take 48 hours for the results. Please call after 1 week if you have not heard back. Prescriptions: Azithromycin [Zithromax] 250 mg PO DAILY #6 tab Ciprofloxacin 0.3% [Ciloxan 0.3% Ophth SOLN] 1 - 2 drop BOTHEYES Q4 #1 bottle Instructions: Conjunctivitis (Pinkeye) (DC), Acanthosis Nigricans (DC) Forms: [facility] (Tongan) Print Language: ARMENIAN
--- NOTE | 2018-08-02 14:42 | ED PDOC ---
HPI: Influenza Time Seen by Provider: 08/02/18 14:03 Chief Complaint: Cough, Cold, Congestion Past Medical History Vital Signs: Last Vital Signs Temp 98.5 F 08/02/18 13:57 Pulse 111 H 08/02/18 13:57 Resp 18 08/02/18 13:57 BP 145/85 08/02/18 13:57 Pulse Ox 99 08/02/18 13:57 - Medical History PMH: Arthritis, Asthma, COPD, Diabetes (Type II), Hypothyroidism, Rheumatoid Arthritis, Sleep Apnea Denies: Chronic Kidney Disease - Surgical History Surgical History: Cholecystectomy, Tonsillectomy, - Family History Family History: States: Unknown Family Hx, Hypertension - Home Medications Home Medications: Ambulatory Orders Medication Instructions Recorded Cholecalciferol [Vitamin D 1000 IU] 5,000 unit PO SAT 07/01/17 Glimepiride [Amaryl] 1 mg PO DAILY 07/01/17 Levothyroxine [Synthroid] 125 mcg PO DAILY #30 tab 07/04/17 Sulindac 200 mg PO BID PRN 30 Days #60 07/04/17 tablet Albuterol Sulfate [Proair Hfa] 2 puff IH Q4H PRN 07/22/17 Budesonide/Formoterol Fumarate 2 puff INH PRN PRN 01/30/18 [Symbicort 160-4.5 Mcg Inhaler] Leflunomide [Arava] 20 mg PO DAILY 01/30/18 Albuterol/Ipratropium [Duoneb 3 3 ml IH QID #100 neb 02/03/18 MG/3 Ml-0.5 MG/3 Ml 3 Ml] predniSONE [predniSONE Tab] 10 mg PO DAILY #7 tab 02/03/18 - Allergies Allergies/Adverse Reactions: Allergies Allergy/AdvReac Type Severity Reaction Status Date / Time fluticasone Allergy SWELLING Verified 01/31/18 07:36 [From Advair Diskus] salmeterol Allergy SWELLING Verified 01/31/18 07:36 [From Advair Diskus] Beef Containing Products AdvReac SHORTNESS Verified 01/30/18 19:47 OF BREATH [place] And Derivatives AdvReac SHORTNESS Verified 01/30/18 19:47 OF BREATH diphenhydramine AdvReac REDNESS Verified 01/30/18 19:47 [From Benadryl] methylprednisolone AdvReac VOMITING Verified 01/30/18 19:47 [From Solu-Medrol] PORK AdvReac SHORTNESS Verified 01/30/18 19:47 OF BREATH - ECG O2 Sat by Pulse Oximetry: 99 Disposition - Clinical Impression Clinical Impression: Acute bronchitis, Conjunctivitis, Acanthosis nigricans - Patient ED Disposition Is Patient to be Admitted: No - Disposition Referrals: [facility] [Outside] Disposition: Routine/Home Disposition Time: 14:51 Condition: STABLE Additional Instructions: FOLLOW UP WITH [facility] FOR FURTHER EVALUATION RETURN TO ED IMMEDIATELY IF SYMPTOMS WORSEN SELENE GARCIA, thank you for letting us take care of you today. Your provider was Marge Tai MD and you were treated for NECK PAIN,EYES WATERY. The emergency medical care you received today was directed at your acute symptoms. If you were prescribed any medication, please fill it and take as directed. It may take several days for your symptoms to resolve. Return to the Emergency Department if your symptoms worsen, do not improve, or if you have any other problems. Please contact your doctor or call one of the physicians/clinics you have been referred to that are listed on the Patient Visit Information form that is included in your discharge packet. Bring any paperwork you were given at discharge with you along with any medications you are taking to your follow up visit. Our treatment cannot replace ongoing medical care by a primary care provider outside of the emergency department. Thank you for allowing the [facility] team to be part of your care today. If you had an X-Ray or CT scan: A Radiologist will review the ED reading if any change in treatment is needed we will contact you. If you had a blood, urine, or wound culture: It will take several days for the results, if any change in treatment is needed we will contact you. If you had an STI test: It will take 48 hours for the results. Please call after 1 week if you have not heard back. Instructions: Acanthosis Nigricans (DC), Conjunctivitis (Pinkeye) (DC) Forms: [facility] (Portuguese)
--- NOTE | 2018-08-02 14:51 | RAD ---
Date of service: 08/02/2018 HISTORY: cough COMPARISON: Chest radiograph dated 01/30/2018. TECHNIQUE: Chest PA and lateral FINDINGS: LUNGS: Chronic right lung volume loss with fibrosis, scarring and bronchiectasis, unchanged. Left lung grossly clear. PLEURA: No significant pleural effusion identified. No pneumothorax apparent. CARDIOVASCULAR: Mediastinal shift to the right. Aortic atherosclerotic calcifications. Cardiomediastinal silhouette unchanged. OSSEOUS STRUCTURES: Unchanged. VISUALIZED UPPER ABDOMEN: Normal. OTHER FINDINGS: None. IMPRESSION: Chronic right lung volume loss with fibrosis, scarring and bronchiectasis. No acute pulmonary disease.
[2018-08-02 14:56] VITALS: BP 115/76; PULSE 96
== END 2018-08-02 15:02 | disposition home or self-care (01) ==
LOC: H.ER 13:53
DX: J20.9 Acute bronchitis, unspecified (principal); H10.9 Unspecified conjunctivitis; L83 Acanthosis nigricans; E11.9 Type 2 diabetes mellitus without complications; Z79.84 Long term (current) use of oral hypoglycemic drugs; J44.0 Chronic obstructive pulmonary disease with (acute) lower respiratory infection; M06.9 Rheumatoid arthritis, unspecified; E03.9 Hypothyroidism, unspecified; Z88.8 Allergy status to other drugs, medicaments and biological substances